=== PATIENT | female | born 1955 | race Caucasian/White ===

== ENCOUNTER 2021-08-31 18:33 | Inpatient (IN) ==
--- NOTE | 2021-08-31 18:53 | Emergency Department Note ---
History of Present Illness General Chief complaint: Altered Mental Status Time Seen by Provider: 08/31/21 18:43 Source: patient and other (Patient's nurse) Mode of arrival: EMS Limitations: altered mental status History of Present Illness Provider complaint: Altered mental status Onset (ago): hour(s) Location: head Pain Consistency: + constant Quality: + other (Altered mental status) Associated symptoms: + cough; no headaches This is a 66-year-old female brought in by ambulance after her sister found her on the ground at home. She was lying in her own feces and urine. She was just found prior to arrival. The patient was unable to get up. She states that she fell but did not hit her head. She will not answer many more questions even of a yes and no answer. She was just discharged from the hospital several days ago. She lives by herself. No further history is available. I was able to speak to her later. After she was on oxygen for some time she became coherent. She was able to answer my questions appropriately. She states that she fell this afternoon and could not get up. She developed a headache after the fall which she describes as an ache on the top of her head. No worsening factors. No neck injury or neck pain or stiffness. She has not been vomiting or having diarrhea. She denies any urinary symptoms. She denies any chest pain or abdominal pain. She did feel short of breath. She has been coughing. Home Medications Medication Instructions Recorded Confirmed Type aspirin 81 mg capsule 81 mg PO DAILY #30 cap 03/03/21 08/31/21 Rx atorvastatin 40 mg tablet 40 mg PO DAILY #30 tab 03/03/21 08/31/21 Rx blood sugar diagnostic (OneTouch #100 ea 03/03/21 08/25/21 Rx Verio test strips) carvedilol 6.25 mg tablet 6.25 mg PO BID #180 tab 03/03/21 08/31/21 Rx cetirizine 10 mg tablet (Zyrtec) 10 mg PO DAILY PRN #30 tab 03/03/21 08/31/21 Rx lisinopril 2.5 mg tablet 2.5 mg PO DAILY #30 tab 03/03/21 08/31/21 Rx pantoprazole 40 mg tablet,delayed 40 mg PO DAILY #30 tab 03/03/21 08/31/21 Rx release pen needle, diabetic 31 gauge x #50 ea 03/03/21 08/25/21 Rx 08/28" (Easy Comfort Pen [place]) L.acidop,casei,lactis,rham-B.lact,ramon 2 cap PO DAILY 14 Days #28 cap 08/28/21 08/31/21 Rx 625 mg (10 billion cell) capsule (Advanced Probiotic) doxycycline hyclate 100 mg capsule 100 mg PO BID 5 Days #10 cap 08/28/21 08/31/21 Rx insulin aspart U-100 100 unit/mL 15 unit SUBCUT TID #15 ml 08/28/21 08/31/21 Rx (3 mL) subcutaneous pen (Novolog Flexpen U-100 Insulin aspart) magnesium chloride 64 mg 64 mg PO BID 5 Days #10 tab 08/28/21 08/31/21 Rx (magnesium chloride) tablet,delayed release (Mag 64) dulaglutide 1.5 mg/0.5 mL 1.5 mg SUBCUT WK 08/31/21 08/31/21 History subcutaneous pen injector (Trulicity) insulin glargine 100 unit/mL 25 unit SUBCUT HS 08/31/21 08/31/21 History subcutaneous solution (Lantus U-100 Insulin) ondansetron 4 mg disintegrating 4 mg PO Q8 PRN 08/31/21 08/31/21 History tablet Allergies Allergy/AdvReac Type Severity Reaction Status Date / Time egg Allergy Mild Unknown Verified 08/31/21 19:40 Penicillins Allergy Mild Unknown Verified 08/31/21 19:40 codeine Allergy Unknown Verified 08/31/21 19:40 Sulfa (Sulfonamide Allergy Unknown Verified 08/31/21 19:40 Antibiotics) Past Med/Surg History Medical History Bipolar disorder, unspecified CAD (coronary artery disease) COPD (chronic obstructive pulmonary disease) Diabetic ketoacidosis Dyslipidemia GERD without esophagitis History of heart attack Hypertension Type 2 diabetes mellitus Surgical History History of surgical removal of ganglion cyst Hx of cholecystectomy Hx of tonsillectomy Family History Other Breast cancer Diabetes Myocardial infarction Denies family history of Ovarian cancer Prostate cancer Colorectal cancer Social History Smoking Status: Former smoker Age Quit Using Tobacco: 61; Second Hand Exposure: No; Hx Alcohol Use: No Hx Substance Use: No Preferred Language: Vietnamese Communication Ability: Effective Visual Impairment: No Limitations Hearing Ability: Normal 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 and A total of 10 systems reviewed and were otherwise negative (Reviewed at 2030 after the patient was more coherent) Unobtainable due to cognitive status Physical Exam Vital Signs Vital Signs - 24 hr 08/31/21 18:54 08/31/21 19:00 08/31/21 21:12 Temperature 37.3 C Temperature Source Oral Pulse Rate 106 H Pulse Rate [Right Finger] 108 H 102 H Pulse Rhythm Regular Pulse Strength Normal Pulse Strength [Right Finger] Normal Respiratory Rate 21 22 Respiratory Effort / Characteristics Non-Labored Spontaneous Spontaneous Respiratory Depth Shallow Respiratory Pattern Regular Blood Pressure 184/92 H Blood Pressure [Right Arm] 172/95 H Blood Pressure Mean 122 Blood Pressure Mean [Right Arm] 120 Blood Pressure Position Lying Blood Pressure Position [Right Arm] Lying Pulse Oximetry 97 80 L 90 Oxygen Delivery Method Nasal Cannula Room Air Nasal Cannula Oxygen Flow Rate 5 7 Sepsis Recent Fever Within 48 Hours No Sepsis New/Unexplained Change in Mental Status No Sepsis Action Taken by Nursing Physician Notified 08/31/21 21:18 Temperature Temperature Source Pulse Rate 108 H Pulse Rate [Right Finger] Pulse Rhythm Pulse Strength Pulse Strength [Right Finger] Respiratory Rate Respiratory Effort / Characteristics Respiratory Depth Respiratory Pattern Blood Pressure 145/102 H Blood Pressure [Right Arm] Blood Pressure Mean Blood Pressure Mean [Right Arm] Blood Pressure Position Blood Pressure Position [Right Arm] Pulse Oximetry Oxygen Delivery Method Oxygen Flow Rate Sepsis Recent Fever Within 48 Hours Sepsis New/Unexplained Change in Mental Status Sepsis Action Taken by Nursing Constitutional: Vital signs reviewed. Coughing throughout the examination. Eyes: Pupils are equal round reactive to light. Conjunctiva are noninjected. ENT: Pharynx is clear without erythema or exudate. Mucous membranes are moist. No midline tenderness to cervical spine. Respiratory: Rhonchi and wheezing bilaterally. Breath sounds are equal bilaterally. Cardiovascular: Tachycardic. Regular rhythm. GI: Soft, nondistended and nontender. Bowel sounds are present. Musculoskeletal: No peripheral edema. No lower extremity tenderness. Integumentary: No cyanosis. or jaundice. Neurological: The patient is awake and alert. Does not follow commands and ignores most questions. Psychiatric: Unable to assess Course Administered Medications Levofloxacin/Dextrose (Levaquin/D5w) 750 mg in 150 mls @ 100 mls/hr IV NOW STA Stop: 08/31/21 21:53 Last Admin: 08/31/21 21:17 Dose: 100 mls/hr Documented by: [id number] Magnesium Sulfate/Dextrose (Magnesium Sulfate / D5w) 1 gm in 100 mls @ 50 mls/hr IV ONE ONE Stop: 08/31/21 22:51 Last Admin: 08/31/21 21:18 Dose: 50 mls/hr Documented by: [id number] Discontinued Medications Albuterol (Albut/Ipratrop 3mg/0.5mg Neb 3 Ml Vial) 12 ml NEB ONE ONE; Protocol Stop: 08/31/21 20:40 Last Admin: 08/31/21 21:11 Dose: 12 ml Documented by: [id number] Sodium Chloride (Nss) 500 mls @ 999 mls/hr IV .Q31M ELIDA Stop: 08/31/21 19:30 Last Admin: 08/31/21 20:39 Dose: 999 mls/hr Documented by: [id number] Ioversol (Optiray 320 125ml) 119 ml IV ONCE ONE Stop: 08/31/21 20:01 Last Admin: 08/31/21 20:00 Dose: 119 ml Documented by: [id number] Metoprolol Tartrate (Metoprolol Tartrate 1 Mg/Ml Vial) 2.5 mg IV NOW STA Stop: 08/31/21 20:51 Last Admin: 08/31/21 21:18 Dose: 2.5 mg Documented by: [id number] Critical Care Time Critical Care Time: Yes Total Critical Care Time: 45 I have personally spent approximately 45 minutes of critical care time in the direct management of this patient. This includes bedside care, interpretation of diagnostic studies, and testing, discussion with consultants, patient, and family members, and other required patient management activities. These minutes are in excess of all separately billable procedures. Medical Decision Making Differential Diagnosis Intracranial hemorrhage, CVA, encephalopathy, DKA, UTI, pneumonia, metabolic derangement Medical Records Attestation: I reviewed the patient's medical records. I did perform a limited focused review of portions of the patient's old chart on the electronic medical record. The patient was just discharged from the hospital on the for DKA, fall and generalized weakness. The patient has a history of confusion and it was unclear if she has been taking her insulin. She also had sinusitis and was placed on antibiotics. Home Medications Current Medication List: was personally reviewed by me Laboratory Data Attestation: I reviewed the patient's lab results. Result diagrams: 08/31/21 19:12 08/31/21 19:12 Lab Results 08/31/21 08/31/21 08/31/21 Range/Units 18:58 19:05 19:06 WBC (4.8-10.8) K/uL RBC (4.2-5.4) M/uL Hgb (12.0-16.0) g/dL POC Hgb (12.0-16.0) g/dl Hct (37-47) % POC Hct (37-47) % MCV (80-100) fL MCH (25-34) pg MCHC (32-36) g/dL RDW Std Deviation (36.4-46.3) fL RDW Coeff of Sally (11.5-14.5) % Plt Count (130-400) K/uL MPV (7.4-10.4) fL Immature Gran % (Auto) % Neut % (Auto) % Lymph % (Auto) % [place] % (Auto) % Eos % (Auto) % Baso % (Auto) % Neut # (Auto) (1.4-6.5) K/uL Lymph # (Auto) (1.2-3.4) K/uL [place] # (Auto) (0.11-0.59) K/uL Eos # (Auto) (0-0.5) K/uL Baso # (Auto) (0-0.2) K/uL Immature Gran # (Auto) (0.00-0.02) K/uL ABG pH (7.35-7.45) ABG pCO2 (35-46) mmHg ABG pO2 (80-95) mmHg ABG HCO3 (19-24) mmol/L ABG O2 Saturation (90-95) % ABG Base Excess (-9-1.8) mEq/L Gamaliel Test (Pos) Barometric Pressure mm/Hg Oxygen Given POC Sodium (135-144) mmol/L Sodium (136-145) mmol/L POC Potassium (3.3-5.0) mmol/L Potassium (3.5-5.1) mmol/L POC Chloride (101-112) mmol/L Chloride (98-107) mmol/L Carbon Dioxide (21-32) mmol/L POC Total CO2 (24-31) mmol/L Anion Gap (3-11) POC Anion Gap (16-25) mmol/L POC BUN (7-18) mg/dl BUN (6-23) mg/dl Creatinine (0.6-1.2) mg/dl POC Creatinine (0.6-1.3) mg/dl Est Cr Clr Drug Dosing ml/min Est GFR ( Amer) ml/min Est GFR (Non-Af Amer) ml/min BUN/Creatinine Ratio (10-20) Glucose (70-99(Fasting)) mg/dl POC Glucose 351 H* 330 H* (70-99) mg/dl POC Glucose (other) (70-99) mg/dl Lactate (0.4-2.0) mmol/L Calcium (8.5-10.1) mg/dl POC Ioniz Calcium Robbie (1.12-1.32) mmol/l Total Bilirubin (0.2-1.0) mg/dl AST (13-39) U/L ALT (7-52) U/L Alkaline Phosphatase (34-104) U/L Total Creatine Kinase (26-192) U/L Troponin I High Sens (0-14) pg/ml Total Protein (6.0-8.3) gm/dl Albumin (3.4-5.0) gm/dl Globulin (2.5-4.0) gm/dl Albumin/Globulin Ratio (0.9-2) TSH (0.300-4.500) uIu/ml SARS-CoV-2, RNA, NAAT NEGATIVE (NEGATIVE) 08/31/21 08/31/21 08/31/21 Range/Units 19:12 19:12 19:12 WBC 28.64 H (4.8-10.8) K/uL RBC 4.30 (4.2-5.4) M/uL Hgb 12.9 (12.0-16.0) g/dL POC Hgb (12.0-16.0) g/dl Hct 37.7 (37-47) % POC Hct (37-47) % MCV 87.7 (80-100) fL MCH 30.0 (25-34) pg MCHC 34.2 (32-36) g/dL RDW Std Deviation 42.5 (36.4-46.3) fL RDW Coeff of Sally 13.2 (11.5-14.5) % Plt Count 469 H (130-400) K/uL MPV 9.3 (7.4-10.4) fL Immature Gran % (Auto) 0.7 % Neut % (Auto) 82.4 % Lymph % (Auto) 8.3 % [place] % (Auto) 7.9 % Eos % (Auto) 0.5 % Baso % (Auto) 0.2 % Neut # (Auto) 23.64 H (1.4-6.5) K/uL Lymph # (Auto) 2.37 (1.2-3.4) K/uL [place] # (Auto) 2.26 H (0.11-0.59) K/uL Eos # (Auto) 0.13 (0-0.5) K/uL Baso # (Auto) 0.05 (0-0.2) K/uL Immature Gran # (Auto) 0.19 H (0.00-0.02) K/uL ABG pH (7.35-7.45) ABG pCO2 (35-46) mmHg ABG pO2 (80-95) mmHg ABG HCO3 (19-24) mmol/L ABG O2 Saturation (90-95) % ABG Base Excess (-9-1.8) mEq/L Gamaliel Test (Pos) Barometric Pressure mm/Hg Oxygen Given POC Sodium (135-144) mmol/L Sodium 131 L (136-145) mmol/L POC Potassium (3.3-5.0) mmol/L Potassium 3.8 (3.5-5.1) mmol/L POC Chloride (101-112) mmol/L Chloride 92 L (98-107) mmol/L Carbon Dioxide 27 (21-32) mmol/L POC Total CO2 (24-31) mmol/L Anion Gap 12 H (3-11) POC Anion Gap (16-25) mmol/L POC BUN (7-18) mg/dl BUN 16 (6-23) mg/dl Creatinine 0.70 (0.6-1.2) mg/dl POC Creatinine (0.6-1.3) mg/dl Est Cr Clr Drug Dosing 74.1 ml/min Est GFR ( Amer) 103.9 ml/min Est GFR (Non-Af Amer) 89.7 ml/min BUN/Creatinine Ratio 22.9 H (10-20) Glucose 354 H* (70-99(Fasting)) mg/dl POC Glucose (70-99) mg/dl POC Glucose (other) (70-99) mg/dl Lactate (0.4-2.0) mmol/L Calcium 8.8 (8.5-10.1) mg/dl POC Ioniz Calcium Robbie (1.12-1.32) mmol/l Total Bilirubin 0.4 (0.2-1.0) mg/dl AST 25 (13-39) U/L ALT 17 (7-52) U/L Alkaline Phosphatase 143 H (34-104) U/L Total Creatine Kinase 329 H (26-192) U/L Troponin I High Sens 31.1 H (0-14) pg/ml Total Protein 7.0 (6.0-8.3) gm/dl Albumin 2.8 L (3.4-5.0) gm/dl Globulin 4.2 H (2.5-4.0) gm/dl Albumin/Globulin Ratio 0.7 L (0.9-2) TSH (0.300-4.500) uIu/ml SARS-CoV-2, RNA, NAAT (NEGATIVE) 08/31/21 08/31/21 08/31/21 Range/Units 19:12 19:12 19:18 WBC (4.8-10.8) K/uL RBC (4.2-5.4) M/uL Hgb (12.0-16.0) g/dL POC Hgb 14.3 (12.0-16.0) g/dl Hct (37-47) % POC Hct 42 (37-47) % MCV (80-100) fL MCH (25-34) pg MCHC (32-36) g/dL RDW Std Deviation (36.4-46.3) fL RDW Coeff of Sally (11.5-14.5) % Plt Count (130-400) K/uL MPV (7.4-10.4) fL Immature Gran % (Auto) % Neut % (Auto) % Lymph % (Auto) % [place] % (Auto) % Eos % (Auto) % Baso % (Auto) % Neut # (Auto) (1.4-6.5) K/uL Lymph # (Auto) (1.2-3.4) K/uL [place] # (Auto) (0.11-0.59) K/uL Eos # (Auto) (0-0.5) K/uL Baso # (Auto) (0-0.2) K/uL Immature Gran # (Auto) (0.00-0.02) K/uL ABG pH (7.35-7.45) ABG pCO2 (35-46) mmHg ABG pO2 (80-95) mmHg ABG HCO3 (19-24) mmol/L ABG O2 Saturation (90-95) % ABG Base Excess (-9-1.8) mEq/L Gamaliel Test (Pos) Barometric Pressure mm/Hg Oxygen Given POC Sodium 132 L (135-144) mmol/L Sodium (136-145) mmol/L POC Potassium 3.8 (3.3-5.0) mmol/L Potassium (3.5-5.1) mmol/L POC Chloride 91 L (101-112) mmol/L Chloride (98-107) mmol/L Carbon Dioxide (21-32) mmol/L POC Total CO2 28 (24-31) mmol/L Anion Gap (3-11) POC Anion Gap 19.0 (16-25) mmol/L POC BUN 15 (7-18) mg/dl BUN (6-23) mg/dl Creatinine (0.6-1.2) mg/dl POC Creatinine 0.6 (0.6-1.3) mg/dl Est Cr Clr Drug Dosing ml/min Est GFR ( Amer) ml/min Est GFR (Non-Af Amer) ml/min BUN/Creatinine Ratio (10-20) Glucose (70-99(Fasting)) mg/dl POC Glucose (70-99) mg/dl POC Glucose (other) 385 H* (70-99) mg/dl Lactate 1.1 (0.4-2.0) mmol/L Calcium (8.5-10.1) mg/dl POC Ioniz Calcium Robbie 1.05 L (1.12-1.32) mmol/l Total Bilirubin (0.2-1.0) mg/dl AST (13-39) U/L ALT (7-52) U/L Alkaline Phosphatase (34-104) U/L Total Creatine Kinase (26-192) U/L Troponin I High Sens (0-14) pg/ml Total Protein (6.0-8.3) gm/dl Albumin (3.4-5.0) gm/dl Globulin (2.5-4.0) gm/dl Albumin/Globulin Ratio (0.9-2) TSH 0.708 (0.300-4.500) uIu/ml SARS-CoV-2, RNA, NAAT (NEGATIVE) 08/31/21 Range/Units 19:22 WBC (4.8-10.8) K/uL RBC (4.2-5.4) M/uL Hgb (12.0-16.0) g/dL POC Hgb (12.0-16.0) g/dl Hct (37-47) % POC Hct (37-47) % MCV (80-100) fL MCH (25-34) pg MCHC (32-36) g/dL RDW Std Deviation (36.4-46.3) fL RDW Coeff of Sally (11.5-14.5) % Plt Count (130-400) K/uL MPV (7.4-10.4) fL Immature Gran % (Auto) % Neut % (Auto) % Lymph % (Auto) % [place] % (Auto) % Eos % (Auto) % Baso % (Auto) % Neut # (Auto) (1.4-6.5) K/uL Lymph # (Auto) (1.2-3.4) K/uL [place] # (Auto) (0.11-0.59) K/uL Eos # (Auto) (0-0.5) K/uL Baso # (Auto) (0-0.2) K/uL Immature Gran # (Auto) (0.00-0.02) K/uL ABG pH 7.45 (7.35-7.45) ABG pCO2 41 (35-46) mmHg ABG pO2 107 H (80-95) mmHg ABG HCO3 28 H (19-24) mmol/L ABG O2 Saturation 98.2 H (90-95) % ABG Base Excess 3.7 H (-9-1.8) mEq/L Gamaliel Test Pos (Pos) Barometric Pressure 725.5 mm/Hg Oxygen Given 5 L POC Sodium (135-144) mmol/L Sodium (136-145) mmol/L POC Potassium (3.3-5.0) mmol/L Potassium (3.5-5.1) mmol/L POC Chloride (101-112) mmol/L Chloride (98-107) mmol/L Carbon Dioxide (21-32) mmol/L POC Total CO2 (24-31) mmol/L Anion Gap (3-11) POC Anion Gap (16-25) mmol/L POC BUN (7-18) mg/dl BUN (6-23) mg/dl Creatinine (0.6-1.2) mg/dl POC Creatinine (0.6-1.3) mg/dl Est Cr Clr Drug Dosing ml/min Est GFR ( Amer) ml/min Est GFR (Non-Af Amer) ml/min BUN/Creatinine Ratio (10-20) Glucose (70-99(Fasting)) mg/dl POC Glucose (70-99) mg/dl POC Glucose (other) (70-99) mg/dl Lactate (0.4-2.0) mmol/L Calcium (8.5-10.1) mg/dl POC Ioniz Calcium Robbie (1.12-1.32) mmol/l Total Bilirubin (0.2-1.0) mg/dl AST (13-39) U/L ALT (7-52) U/L Alkaline Phosphatase (34-104) U/L Total Creatine Kinase (26-192) U/L Troponin I High Sens (0-14) pg/ml Total Protein (6.0-8.3) gm/dl Albumin (3.4-5.0) gm/dl Globulin (2.5-4.0) gm/dl Albumin/Globulin Ratio (0.9-2) TSH (0.300-4.500) uIu/ml SARS-CoV-2, RNA, NAAT (NEGATIVE) Imaging Data Radiologist's Impression: Cervical Spine CT 08/31/21 18:48 CT OF THE CERVICAL SPINE WITHOUT CONTRAST CLINICAL HISTORY: Fall. COMPARISON STUDY: Cervical spine CT August 25, 2021. TECHNIQUE: Helical axial images of the cervical spine were obtained without IV contrast. Sagittal and coronal reconstructions were viewed. Automated exposure control was utilized for the study. A dose lowering technique was utilized adhering to the principles of ALARA. FINDINGS: This study is mildly compromised by artifact. There is straightening of the normal cervical lordosis. Vertebral body heights are maintained. No acute cervical spine fracture or subluxation is present. There is no prevertebral edema. Facet joints are intact. Extensive polypoid mucosal thickening of the sinuses is better depicted on the head CT. IMPRESSION: No acute cervical spine fracture or subluxation. ACT 112: Negative or not required by law. Electronically signed by: Jere Morales M.D. 08/31/2021 8:11 PM Chest X-Ray 08/31/21 18:48 XR chest 1V portable CLINICAL HISTORY: weakness COMPARISON STUDY: Chest radiograph August 25, 2021. FINDINGS: Lung volumes are normal. Lungs are clear. There is no pneumothorax or pleural effusion. Cardiac size is normal. Mediastinal contours are normal. There is no evidence for pulmonary edema. IMPRESSION: No acute cardiopulmonary findings. ACT 112: Negative or not required by law. Electronically signed by: Jere Morales M.D. 08/31/2021 7:[address] 08/31/21 18:48 CT OF THE HEAD WITHOUT CONTRAST CLINICAL HISTORY: Fall. COMPARISON STUDY: Head CT August 25, 2021. TECHNIQUE: Helical axial images of the head were obtained without IV contrast. Automated exposure control was utilized for the study. A dose lowering technique was utilized adhering to the principles of ALARA. FINDINGS: No acute intracranial hemorrhage, midline shift or mass effect is present. Basal cisterns are patent. There are no extra axial collections. Encephalomalacia adjacent to the frontal horns of the lateral ventricles with associated ventricular dilatation is unchanged. This is chronic. No findings to suggest acute dural sinus thrombosis or acute territorial infarct. The appearance of the brain is unchanged. No acute calvarial fracture is identified. Extensive mucosal thickening of the sinuses has progressed since prior CT. IMPRESSION: 1. No acute intracranial findings. No change in appearance of the brain. 2. No acute calvarial fracture. 3. Extensive sinus mucosal thickening which has progressed since prior head CT. ACT 112: Negative or not required by law. Electronically signed by: Jere Morales M.D. 08/31/2021 8:08 PM Chest CTA 08/31/21 19:32 CT ANGIOGRAPHY OF THE CHEST, PULMONARY EMBOLUS PROTOCOL CLINICAL HISTORY: Hypoxia. COMPARISON STUDY: Chest CT August 25, 2021. Chest CT performed earlier today. TECHNIQUE: Following IV administration of 119 mL of Optiray, helical axial images of the chest were obtained utilizing the pulmonary embolus protocol. Maximal intensity projections and sagittal and coronal reformats were viewed on an independent 3D workstation. IV contrast was administered without complication. Automated exposure control was utilized for the study. A dose lowering technique was utilized adhering to the principles of ALARA. CT DOSE: 2120.71 mGy.cm FINDINGS: No pulmonary emboli are identified. There is no thoracic aortic dissection. Size the heart is normal. There is moderate coronary artery calcification. Extensive mitral annular calcification is noted. Several mildly enlarged subcarinal lymph nodes measure up to 1.1 cm in short axis diameter. No pneumothorax or pleural effusion is noted. There is no consolidation to suggest pneumonia. Mild subpleural opacities favor atelectasis. Note is made of moderate circumferential wall thickening of the trachea. This does not spare the posterior tracheal wall. In addition, there is pronounced diffuse bronchial wall thickening, greater within the right lung. This results in significant airway narrowing. Secretions within the airways are present. No acute fracture is identified within visualized portions of the bony thorax. Visualized portions of the upper abdomen are unremarkable. IMPRESSION: 1. No pulmonary emboli identified. 2. Moderate circumferential tracheal wall thickening with mild adjacent infiltra tion. Extensive bronchial wall thickening, greater within the right lung which results in significant airway narrowing. Long segment tracheobronchial wall thickening appearance is nonspecific however differential considerations include Erica's, sarcoidosis, amyloidosis or an infectious process. Pulmonary consultation is recommended. 3. Several mildly enlarged subcarinal lymph nodes which are probably reactive. An underlying neoplastic process is considered unlikely however a follow up chest CT in 3 months is recommended. 4. No acute traumatic findings within the chest. ACT 112: Negative or not required by law. Electronically signed by: Jere Morales M.D. 08/31/2021 8:26 PM ECG Data Attestation: I personally reviewed and interpreted this ECG as follows: Indication: + altered mental status Rate (beats per minute): 108 Rhythm: + sinus tachycardia ECG Glidden: + Normal ECG ST segments: no ST elevation ECG Findings: no PVCs Comparison ECG Date: from (August 25, 2021) Change: no significant change MDM Narrative I did evaluate the patient as noted above. The patient was recently discharged from the hospital for DKA. She lives by herself and her sister found her on the ground today. She is a poor historian and confused at this time so history is very limited. She does deny hitting her head or having any headache. She is hypoxic here and is placed on supplemental oxygen via nasal cannula. IV access was established. I did place an order for continuous cardiac monitoring. The monitor showed sinus tachycardia at a rate of 106 bpm. I did order and personally review the patient's 12-lead EKG as described above. She has no acute ischemic changes. I did order and personally reviewed the images of the patient's chest x-ray as described above. There is no evidence of pneumonia. I did order a urine analysis. I did order and review the patient's blood work as noted in the electronic medical record. Her white count is 28.6. She is not anemic. Platelet count is 469. ABG shows a pH of 7.45. PaCO2 is 41 and PaO2 is 107. Chemistries reveal a sodium of 131. She has an anion gap of 12. CO2 is 27. Glucose is 354. Potassium is 3.8. Her CPK is elevated at 329. Troponin is elevated at 31. Alk phos is 143. Lactate is not elevated. I did order a CT of the head and cervical spine and CT angiogram of the chest. I did review the images myself as well as the radiology report as described above. CT of the head shows no acute intracranial findings. She has extensive spinal mucosal thickening which has progressed since her prior CT. CT cervical spine shows no acute fracture. CT of the chest shows no evidence of pulmonary emboli. There is moderate circumferential tracheal wall thickening with mild adjacent infiltration. Extensive bronchial wall thickening greater within the right lung which results in significant airway narrowing. I did treat her with a hour-long continuous DuoNeb. I did treat the patient with IV Levaquin. This should cover both her sinus infection as well as any lung infection. She was previously given ceftriaxone and doxycycline when she was previously admitted. On reassessment the patient is much more awake and verbal. She is able to answer questions appropriately. She states that she does have a headache on the top of her head which started after she fell. She did not have the headache prior to that. She denies any neck pain or stiffness. She has no meningeal signs on exam. She denies any other complaints including vomiting, chest pain, abdominal pain or other injury.She denies any urinary symptoms. She states that she fell this afternoon. I did recommend hospitalization for further care and evaluation. I did discuss case with the hospitalist and shelter case manager. Impression & Plan Acute respiratory failure with hypoxia, Acute hyperglycemia, Hyponatremia, Asthma exacerbation in COPD, Acute bacterial sinusitis, Acute alteration in mental status, Elevated troponin Discharge Plan Visit Data Chief Complaint: Altered Mental Status ED Provider: Miky Norman Discharge Problem: Acute respiratory failure with hypoxia, Acute hyperglycemia, Hyponatremia, Asthma exacerbation in COPD, Acute bacterial sinusitis, Acute alteration in mental status, Elevated troponin Patient Disposition: Being Evaluated by Hospitalist Forms Stand Alone Forms: My [facility] Prescriptions Prescriptions: No Action atorvastatin 40 mg tablet 40 mg PO DAILY Qty: 30 RF: 2 cetirizine [Zyrtec] 10 mg tablet 10 mg PO DAILY PRN (Reason: allergy symptoms) Qty: 30 RF: 0 (DME) pen needle, diabetic [Easy Comfort Pen [place]] 31 gauge x 5/16" needle See Rx Instructions .ROUTE Qty: 50 RF: 0 (DME) OneTouch Verio test strips Strip See Rx Instructions .ROUTE Qty: 100 RF: 0 aspirin 81 mg capsule 81 mg PO DAILY Qty: 30 RF: 2 carvedilol 6.25 mg tablet 6.25 mg PO BID Qty: 180 RF: 3 lisinopril 2.5 mg tablet 2.5 mg PO DAILY Qty: 30 RF: 2 pantoprazole 40 mg tablet,delayed release (DR/EC) 40 mg PO DAILY Qty: 30 RF: 2 doxycycline hyclate 100 mg Capsule 100 mg PO BID 5 Days Qty: 10 RF: 0 Mag 64 64 mg Tablet,Delayed Release (Dr/Ec) 64 mg PO BID 5 Days Qty: 10 RF: 0 insulin aspart U-100 [Novolog Flexpen U-100 Insulin] 100 unit/mL (3 mL) insulin pen 15 unit subcut TID Qty: 15 RF: 3 Advanced Probiotic 625 mg (10 billion cell) Capsule 2 cap PO DAILY 14 Days Qty: 28 RF: 0 Trulicity 1.5 mg/0.5 mL pen injector 1.5 mg SUBCUT WK RF: 0 ondansetron 4 mg tablet,disintegrating 4 mg PO Q8 PRN (Reason: Nausea And Vomiting) RF: 0 Lantus U-100 Insulin 100 unit/mL solution 25 unit subcut HS RF: 0 Referrals Referrals: PCP,NO [Primary Care Provider] -
[2021-08-31] MEDS ORDERED: SODIUM CHLORIDE 0.9% 500 ML IV SCH (19:00)
[2021-08-31 19:31] LABS: iSTAT Creatinine 0.6 mg/dl (0.6-1.3); iSTAT Hemoglobin 14.3 g/dl (12.0-16.0); iSTAT Ionized Calcium 1.05 mmol/l (1.12-1.32); iSTAT Potassium 3.8 mmol/L (3.3-5.0)
[2021-08-31 19:34] LABS: Hematocrit (blood only) 37.7 % (37-47); Hemoglobin 12.9 g/dL (12.0-16.0); Mean Corpuscular Hgb Conc 34.2 g/dL (32-36); Mean Corpuscular Volume 87.7 fL (80-100); Mean Platelet Volume 9.3 fL (7.4-10.4); Platelet Count 469 K/uL (130-400); RDW Coefficient of Variation 13.2 % (11.5-14.5); RDW Standard Deviation 42.5 fL (36.4-46.3); White Blood Count 28.64 K/uL (4.8-10.8)
--- NOTE | 2021-08-31 19:37 | XRay Report ---
XR chest 1V portable CLINICAL HISTORY: weakness COMPARISON STUDY: Chest radiograph August 25, 2021. FINDINGS: Lung volumes are normal. Lungs are clear. There is no pneumothorax or pleural effusion. Car diac size is normal. Mediastinal contours are normal. There is no evidence for pulmonary edema. IMPRESSION: No acute cardiopulmonary findings. ACT 112: Negative or not required by law. Electronically signed by: Jere Morales M.D. 08/31/2021 7:36 PM
[2021-08-31 19:46] LABS: Base Excess ABG 3.7 mEq/L (-9-1.8); HCO3 ABG 28 mmol/L (19-24); Oxygen Saturation ABG 98.2 % (90-95); PCO2 ABG 41 mmHg (35-46); PO2 ABG 107 mmHg (80-95); pH ABG 7.45 (7.35-7.45)
[2021-08-31 19:47] LABS: Allen Test Pos (Pos)
[2021-08-31] MEDS ORDERED: OPTIRAY 320 125ml IV ONE (20:00)
[2021-08-31 20:06] LABS: Basophils # (auto) 0.05 K/uL (0-0.2); Basophils % (auto) 0.2 %; Eosinophils # (auto) 0.13 K/uL (0-0.5); Eosinophils % (auto) 0.5 %; Immature Granulocytes # (auto) 0.19 K/uL (0.00-0.02); Immature Granulocytes % (auto) 0.7 %; Lymphocytes # (auto) 2.37 K/uL (1.2-3.4); Lymphocytes % (auto) 8.3 %; Monocytes # (auto) 2.26 K/uL (0.11-0.59); Monocytes % (auto) 7.9 %; Neutrophils # (auto) 23.64 K/uL (1.4-6.5); Neutrophils % (auto) 82.4 %
[2021-08-31 20:07] LABS: Albumin Globulin Ratio 0.7 (0.9-2); Albumin Level 2.8 gm/dl (3.4-5.0); BUN Creatinine Ratio 22.9 (10-20); Bilirubin,Total 0.4 mg/dl (0.2-1.0); Calcium 8.8 mg/dl (8.5-10.1); Creatinine Clr Calc Pharmacy 74.1 ml/min; Est GFR (African American) 103.9 ml/min; Est GFR (Non-African American) 89.7 ml/min; Globulin 4.2 gm/dl (2.5-4.0); Potassium 3.8 mmol/L (3.5-5.1)
--- NOTE | 2021-08-31 20:10 | CT Scan Report ---
CT OF THE HEAD WITHOUT CONTRAST CLINICAL HISTORY: Fall. COMPARISON STUDY: Head CT August 25, 2021. TECHNIQUE: Helical axial images of the head were obtained without IV contrast. Automated exposure con trol was utilized for the study. A dose lowering technique was utilized adhering to the principles o f ALARA. FINDINGS: No acute intracranial hemorrhage, midline shift or mass effect is present. Basal cisterns a re patent. There are no extra axial collections. Encephalomalacia adjacent to the frontal horns of th e lateral ventricles with associated ventricular dilatation is unchanged. This is chronic. No finding s to suggest acute dural sinus thrombosis or acute territorial infarct. The appearance of the brain i s unchanged. No acute calvarial fracture is identified. Extensive mucosal thickening of the sinuses h as progressed since prior CT. IMPRESSION: 1. No acute intracranial findings. No change in appearance of the brain. 2. No acute calvarial fracture. 3. Extensive sinus mucosal thickening which has progressed since prior head CT. ACT 112: Negative or not required by law. Electronically signed by: Jere Morales M.D. 08/31/2021 8:08 PM
--- NOTE | 2021-08-31 20:13 | CT Scan Report ---
CT OF THE CERVICAL SPINE WITHOUT CONTRAST CLINICAL HISTORY: Fall. COMPARISON STUDY: Cervical spine CT August 25, 2021. TECHNIQUE: Helical axial images of the cervical spine were obtained without IV contrast. Sagittal a nd coronal reconstructions were viewed. Automated exposure control was utilized for the study. A do se lowering technique was utilized adhering to the principles of ALARA. FINDINGS: This study is mildly compromised by artifact. There is straightening of the normal cervical lordosis. Vertebral body heights are maintained. No acute cervical spine fracture or subluxation is present. There is no prevertebral edema. Facet joints are intact. Extensive polypoid mucosal thicken ing of the sinuses is better depicted on the head CT. IMPRESSION: No acute cervical spine fracture or subluxation. ACT 112: Negative or not required by law. Electronically signed by: Jere Morales M.D. 08/31/2021 8:11 PM
[2021-08-31] MEDS ORDERED: levoFLOXacin/D5W 750 MG/150 ML BAG IV STA (20:24)
--- NOTE | 2021-08-31 20:28 | CT Scan Report ---
CT ANGIOGRAPHY OF THE CHEST, PULMONARY EMBOLUS PROTOCOL CLINICAL HISTORY: Hypoxia. COMPARISON STUDY: Chest CT August 25, 2021. Chest CT performed earlier today. TECHNIQUE: Following IV administration of 119 mL of Optiray, helical axial images of the chest were o btained utilizing the pulmonary embolus protocol. Maximal intensity projections and sagittal and cor onal reformats were viewed on an independent 3D workstation. IV contrast was administered without co mplication. Automated exposure control was utilized for the study. A dose lowering technique was ut ilized adhering to the principles of ALARA. CT DOSE: 2120.71 mGy.cm FINDINGS: No pulmonary emboli are identified. There is no thoracic aortic dissection. Size the heart is normal. There is moderate coronary artery calcification. Extensive mitral annular calcification i s noted. Several mildly enlarged subcarinal lymph nodes measure up to 1.1 cm in short axis diameter. No pneumothorax or pleural effusion is noted. There is no consolidation to suggest pneumonia. Mild marie bpleural opacities favor atelectasis. Note is made of moderate circumferential wall thickening of the trachea. This does not spare the posterior tracheal wall. In addition, there is pronounced diffuse b ronchial wall thickening, greater within the right lung. This results in significant airway narrowing . Secretions within the airways are present. No acute fracture is identified within visualized portio ns of the bony thorax. Visualized portions of the upper abdomen are unremarkable. IMPRESSION: 1. No pulmonary emboli identified. 2. Moderate circumferential tracheal wall thickening with mild adjacent infiltration. Extensive bronc hial wall thickening, greater within the right lung which results in significant airway narrowing. Lo ng segment tracheobronchial wall thickening appearance is nonspecific however differential considerat ions include Erica's, sarcoidosis, amyloidosis or an infectious process. Pulmonary consultation is recommended. 3. Several mildly enlarged subcarinal lymph nodes which are probably reactive. An underlying neoplast ic process is considered unlikely however a follow up chest CT in 3 months is recommended. 4. No acute traumatic findings within the chest. ACT 112: Negative or not required by law. Electronically signed by: Jere Morales M.D. 08/31/2021 8:26 PM
[2021-08-31] MEDS ORDERED: ALBUT/IPRATROP 3MG/0.5MG NEB 3 ML VIAL NEB ONE (20:39)
[2021-08-31] MEDS ORDERED: METOPROLOL TARTRATE 1 MG/ML VIAL IV STA (20:50)
[2021-08-31] MEDS ORDERED: MAGNESIUM SULFATE / D5W 1 GM/100 ML BAG IV ONE (20:52)
[2021-08-31 22:03] LABS: Appearance Urine Cloudy (Clear); Bacteria Urine Automated Negative (Negative); Bilirubin Urine Negative (Negative); Blood Urine 2+ (Negative); Color Urine Yellow; Glucose Urine UA 3+ (Negative); Ketones Urine 3+ (Negative); Leukocyte Esterase Urine Trace (Negative); Nitrite Urine Negative (Negative); Protein Urine 2+ (Negative); Specific Gravity Urine > 1.045 (1.000-1.030); Urobilinogen Urine Negative (Negative); WBC Urine Automated >30 /hpf (0-5); pH Urine 5.5 (4.5-7.5)
--- NOTE | 2021-08-31 23:29 | History & Physical Report ---
Date of Service August 31, 2021 Assessment & Plan (1) Encephalopathy: Plan: Multifactorial : Acute hypoxemic respiratory failure secondary to COPD exacerbation/tracheobronchitis Severe sepsis secondary to right parotitis, healthcare associated infection given recent confinement Elevated BP upon arrival at the ER Improved mentation after initial intervention at the ER. Troponin elevation secondary to illness, hx CAD hyperlipidemia on statin Rx DM 2 insulin requiring, suboptimal control as of recent hemoglobin A1c of 14.21 Aug 2021 mood disorder, at baseline Possible functional disability past tobacco abuse Medical telemetry Supplemental O2 Nebs RTC, low-dose steroid course given poorly controlled DM Pulmonary consult Re: Respiratory failure, abnormal CT chest, COPD exacerbation CS, Vancomycin and Meropenem for healthcare associated parotitis ENT consult Re: Right parotitis Follow troponin, TTE if with progression Basal insulin, ISS BG goal 1 10-1 40, carb count coverage PT OT eval DVT prophylaxis per Lovenox subcu Full code Total critical care time was 40 minutes. Text document was generated using [employer] voice recognition software. It may contain grammatical or spelling errors. Kindly contact undersigned for clarification of any documentation item in question. History of Present Illness Chief Complaint: Shortness of breath, altered mental status as per records Primary Care Provider: Dr. Reed History obtained from patient and records. Medical history significant for COPD, CAD status post stent, hypertension, hyperlipidemia DM 2 insulin requiring, mood disorder, past tobacco abuse. Last confinement August 25-2021 for DKA and acute bacterial sinusitis. Patient discharged on Doxycycline course. Patient noted painful right cheek swelling the last 2 days. Junky cough symptoms patient denies aspiration. Shortness of breath and weakness without chest pain as per patient. Patient denies fluid retention. Patient felt weak leading to fall at home this afternoon. Patient had trouble getting up. Transient headache symptoms. No syncope/LOC. No abdominal pain complaints. Patient found on the floor by her sister. Patient lying in her own feces and urine. Patient somewhat confused. Patient found to be hypoxemic by EMS. Levaquin given at the ER for sepsis. Improving mentation at the ER. Medical History as above Surgical History : BTL, cholecystectomy Family History : DM Personal/Social history : Past tobacco abuse, no EtOH intake Allergies Allergy/AdvReac Type Severity Reaction Status Date / Time egg Allergy Mild Unknown Verified 09/01/21 07:06 Penicillins Allergy Mild Unknown Verified 09/01/21 07:06 codeine Allergy Unknown Verified 09/01/21 07:06 Sulfa (Sulfonamide Allergy Unknown Verified 09/01/21 07:06 Antibiotics) Home Medications Medication Instructions Recorded Confirmed Type aspirin 81 mg capsule 81 mg PO DAILY #30 cap 03/03/21 08/31/21 Rx atorvastatin 40 mg tablet 40 mg PO DAILY #30 tab 03/03/21 08/31/21 Rx blood sugar diagnostic (OneTouch #100 ea 03/03/21 08/25/21 Rx Verio test strips) carvedilol 6.25 mg tablet 6.25 mg PO BID #180 tab 03/03/21 08/31/21 Rx cetirizine 10 mg tablet (Zyrtec) 10 mg PO DAILY PRN #30 tab 03/03/21 08/31/21 Rx lisinopril 2.5 mg tablet 2.5 mg PO DAILY #30 tab 03/03/21 08/31/21 Rx pantoprazole 40 mg tablet,delayed 40 mg PO DAILY #30 tab 03/03/21 08/31/21 Rx release pen needle, diabetic 31 gauge x #50 ea 03/03/21 08/25/21 Rx 5/16" (Easy Comfort Pen Ald[place]) L.acidop,casei,lactis,rham-B.lact,ramon 2 cap PO DAILY 14 Days #28 cap 08/28/21 08/31/21 Rx 625 mg (10 billion cell) capsule (Advanced Probiotic) doxycycline hyclate 100 mg capsule 100 mg PO BID 5 Days #10 cap 08/28/21 08/31/21 Rx insulin aspart U-100 100 unit/mL 15 unit SUBCUT TID #15 ml 08/28/21 08/31/21 Rx (3 mL) subcutaneous pen (Novolog Flexpen U-100 Insulin aspart) magnesium chloride 64 mg 64 mg PO BID 5 Days #10 tab 08/28/21 08/31/21 Rx (magnesium chloride) tablet,delayed release (Mag 64) dulaglutide 1.5 mg/0.5 mL 1.5 mg SUBCUT WK 08/31/21 08/31/21 History subcutaneous pen injector (Trulicity) insulin glargine 100 unit/mL 25 unit SUBCUT HS 08/31/21 08/31/21 History subcutaneous solution (Lantus U-100 Insulin) ondansetron 4 mg disintegrating 4 mg PO Q8 PRN 08/31/21 08/31/21 History tablet Past Med/Surg History Medical History (Updated 09/01/21 @ 08:20 by Ranjan Hussein MD) Bipolar disorder, unspecified CAD (coronary artery disease) COPD (chronic obstructive pulmonary disease) Diabetic ketoacidosis Dyslipidemia GERD without esophagitis History of heart attack Hypertension Type 2 diabetes mellitus Surgical History (Updated 09/01/21 @ 07:06 by Lianne Solorio) History of surgical removal of ganglion cyst Hx of cholecystectomy Hx of tonsillectomy Family History (System 09/01/21 @ 07:06 by Lianne Solorio) Other Breast cancer Diabetes Myocardial infarction Denies family history of Ovarian cancer Prostate cancer Colorectal cancer Social History (System 09/01/21 @ 07:06 by Lianne Solorio) Smoking Status: Former smoker Age Quit Using Tobacco: 61; Second Hand Exposure: No; Do You Dip or Chew Tobacco: No; Tobacco Cessation Education Requested by Patient: No Hx Alcohol Use: No Hx Substance Use: Yes Preferred Language: Citizen Of [place] Communication Ability: Effective Visual Impairment: No Limitations Hearing Ability: Normal [employer]ante[employer] Required: No Beliefs That Will Affect Care: None marital status: / Current Living Situation: Alone current occupational status: retired How many Children do You have: 1 Other Information That Helps Us Care for You: No Feels Safe at Home: Yes Safety Concerns: Feels Safe At This Time Assistive Devices: Glasses Review of Systems Review of Systems: As per HPI, all other systems reviewed and negative Physical Exam Physical Exam: GENERAL: Slightly uncomfortable, morbidly obese, no respiratory distress SKIN: Normal color, warm HEENT: Bespectacled, [place] palpebral conjunctivae, no ptosis, dry buccal mucosa, tender infra-auricular swelling right, O2 mask in place NECK : Supple, short neck, minimal right cervical tenderness CHEST : Decreased breath sounds, occasional expiratory wheezes , no tenderness HEART : Tachycardic, no obvious murmurs ABDOMEN: Some distention, nontender EXTREMITIES : Minimal LE swelling, no LE tenderness, no other conspicuous deformities noted NEUROLOGIC : Coherent, no facial asymmetry, slightly hard of hearing, and stance not assessed Results & Data Results & Data ([facility]) Vital Signs (Past 12 Hours) Vital Signs Temp Pulse Pulse Resp BP BP Pulse Ox 08/31/21 23:20 94 08/31/21 23:15 160/87 H 94 08/31/21 23:10 92 08/31/21 23:00 140/83 89 L 08/31/21 22:50 95 08/31/21 22:45 148/73 H 96 08/31/21 22:40 97 08/31/21 22:30 129/74 93 08/31/21 22:20 96 08/31/21 22:15 129/85 99 08/31/21 22:10 98 08/31/21 22:00 129/65 96 08/31/21 21:50 97 08/31/21 21:45 132/92 98 08/31/21 21:40 99 08/31/21 21:30 140/74 98 08/31/21 21:20 98 08/31/21 21:18 108 H 145/102 H 08/31/21 21:12 102 H 22 145/102 H 93 08/31/21 21:10 86 L 08/31/21 21:00 86 L 08/31/21 20:50 88 L 08/31/21 20:40 92 08/31/21 20:30 90 08/31/21 20:20 90 08/31/21 20:10 94 08/31/21 20:03 97 08/31/21 19:31 107 H 25 H 162/92 H 94 08/31/21 19:30 105 H 22 93 08/31/21 19:20 107 H 27 H 96 08/31/21 19:10 106 H 31 H 97 08/31/21 19:05 109 H 28 H 96 08/31/21 19:00 80 L 08/31/21 18:54 37.3 C 106 H 108 H 21 184/92 H 172/95 H 97 Laboratory Results Laboratory Results WBC 28.64 K/uL (4.8-10.8) H 08/31/21 19:12 RBC 4.30 M/uL (4.2-5.4) 08/31/21 19:12 Hgb 12.9 g/dL (12.0-16.0) 08/31/21 19:12 POC Hgb 14.3 g/dl (12.0-16.0) 08/31/21 19:18 Hct 37.7 % (37-47) 08/31/21 19:12 POC Hct 42 % (37-47) 08/31/21 19:18 MCV 87.7 fL (80-100) 08/31/21 19:12 MCH 30.0 pg (25-34) 08/31/21 19:12 MCHC 34.2 g/dL (32-36) 08/31/21 19:12 RDW Std Deviation 42.5 fL (36.4-46.3) 08/31/21 19:12 RDW Coeff of Sally 13.2 % (11.5-14.5) 08/31/21 19:12 Plt Count 469 K/uL (130-400) H 08/31/21 19:12 MPV 9.3 fL (7.4-10.4) 08/31/21 19:12 Immature Gran % (Auto) 0.7 % 08/31/21 19:12 Neut % (Auto) 82.4 % 08/31/21 19:12 Lymph % (Auto) 8.3 % 08/31/21 19:12 [place] % (Auto) 7.9 % 08/31/21 19:12 Eos % (Auto) 0.5 % 08/31/21 19:12 Baso % (Auto) 0.2 % 08/31/21 19:12 Neut # (Auto) 23.64 K/uL (1.4-6.5) H 08/31/21 19:12 Lymph # (Auto) 2.37 K/uL (1.2-3.4) 08/31/21 19:12 [place] # (Auto) 2.26 K/uL (0.11-0.59) H 08/31/21 19:12 Eos # (Auto) 0.13 K/uL (0-0.5) 08/31/21 19:12 Baso # (Auto) 0.05 K/uL (0-0.2) 08/31/21 19:12 Immature Gran # (Auto) 0.19 K/uL (0.00-0.02) H 08/31/21 19:12 ABG pH 7.45 (7.35-7.45) 08/31/21 19:22 ABG pCO2 41 mmHg (35-46) 08/31/21 19: ABG pO2 107 mmHg (80-95) H 08/31/21 19:22 ABG HCO3 28 mmol/L (19-24) H 08/31/21 19:22 ABG O2 Saturation 98.2 % (90-95) H 08/31/21 19:22 ABG Base Excess 3.7 mEq/L (-9-1.8) H 08/31/21 19:22 Gamaliel Test Pos (Pos) 08/31/21 19:22 Barometric Pressure 725.5 mm/Hg 08/31/21 19:22 Oxygen Given 5 L 08/31/21 19:22 POC Sodium 132 mmol/L (135-144) L 08/31/21 19:18 Sodium 131 mmol/L (136-145) L 08/31/21 19:12 POC Potassium 3.8 mmol/L (3.3-5.0) 08/31/21 19:18 Potassium 3.8 mmol/L (3.5-5.1) 08/31/21 19:12 POC Chloride 91 mmol/L (101-112) L 08/31/21 19:18 Chloride 92 mmol/L (98-107) L 08/31/21 19:12 Carbon Dioxide 27 mmol/L (21-32) 08/31/21 19:12 POC Total CO2 28 mmol/L (24-31) 08/31/21 19:18 Anion Gap 12 (3-11) H 08/31/21 19:12 POC Anion Gap 19.0 mmol/L (16-25) 08/31/21 19:18 POC BUN 15 mg/dl (7-18) 08/31/21 19:18 BUN 16 mg/dl (6-23) 08/31/21 19:12 Creatinine 0.70 mg/dl (0.6-1.2) 08/31/21 19:12 POC Creatinine 0.6 mg/dl (0.6-1.3) 08/31/21 19:18 Est Cr Clr Drug Dosing 74.1 ml/min 08/31/21 19:12 Est GFR ( Amer) 103.9 ml/min 08/31/21 19:12 Est GFR (Non-Af Amer) 89.7 ml/min 08/31/21 19:12 BUN/Creatinine Ratio 22.9 (10-20) H 08/31/21 19:12 Glucose 354 mg/dl (70-99(Fasting)) H* 08/31/21 19:12 POC Glucose 330 mg/dl (70-99) H* 08/31/21 19:06 POC Glucose (other) 385 mg/dl (70-99) H* 08/31/21 19:18 Lactate 1.1 mmol/L (0.4-2.0) 08/31/21 19:12 Calcium 8.8 mg/dl (8.5-10.1) 08/31/21 19:12 POC Ioniz Calcium Robbie 1.05 mmol/l (1.12-1.32) L 08/31/21 19:18 Magnesium 1.8 mg/dl (1.7-2.4) 08/31/21 19:23 Total Bilirubin 0.4 mg/dl (0.2-1.0) 08/31/21 19:12 AST 25 U/L (13-39) 08/31/21 19:12 ALT 17 U/L (7-52) 08/31/21 19:12 Alkaline Phosphatase 143 U/L (34-104) H 08/31/21 19:12 Total Creatine Kinase 329 U/L (26-192) H 08/31/21 19:12 Troponin I High Sens 31.1 pg/ml (0-14) H 08/31/21 19:12 Total Protein 7.0 gm/dl (6.0-8.3) 08/31/21 19:12 Albumin 2.8 gm/dl (3.4-5.0) L 08/31/21 19:12 Globulin 4.2 gm/dl (2.5-4.0) H 08/31/21 19:12 Albumin/Globulin Ratio 0.7 (0.9-2) L 08/31/21 19:12 TSH 0.708 uIu/ml (0.300-4.500) 08/31/21 19:12 Urine Color Yellow 08/31/21 20:30 Urine Appearance Cloudy (Clear) A 08/31/21 20:30 Urine pH 5.5 (4.5-7.5) 08/31/21 20:30 Ur Specific [place] > 1.045 (1.000-1.030) H 08/31/21 20:30 Urine Protein 2+ (Negative) H 08/31/21 20:30 Urine Glucose (UA) 3+ (Negative) H 08/31/21 20:30 Urine Ketones 3+ (Negative) H 08/31/21 20:30 Urine Blood 2+ (Negative) H 08/31/21 20:30 Urine Nitrite Negative (Negative) 08/31/21 20:30 Urine Bilirubin Negative (Negative) 08/31/21 20:30 Urine Urobilinogen Negative (Negative) 08/31/21 20:30 Ur Leukocyte Esterase Trace (Negative) H 08/31/21 20:30 Urine WBC (Auto) >30 /hpf (0-5) H 08/31/21 20:30 Urine RBC (Auto) 5-10 /hpf (0-4) H 08/31/21 20:30 U Hyaline Cast (Auto) 1-5 /lpf (0-5) 08/31/21 20:30 U Epithel Cells (Auto) 10-20 /lpf (0-5) H 08/31/21 20:30 Urine Bacteria (Auto) Negative (Negative) 08/31/21 20:30 Urine Yeast Budding (None Prsent) A 08/31/21 20:30 SARS-CoV-2, RNA, NAAT NEGATIVE (NEGATIVE) 08/31/21 19:[address] 08/31/21 18:48 CT OF THE CERVICAL SPINE WITHOUT CONTRAST CLINICAL HISTORY: Fall. COMPARISON STUDY: Cervical spine CT August 25, 2021. TECHNIQUE: Helical axial images of the cervical spine were obtained without IV contrast. Sagittal and coronal reconstructions were viewed. Automated exposure control was utilized for the study. A dose lowering technique was utilized adhering to the principles of ALARA. FINDINGS: This study is mildly compromised by artifact. There is straightening of the normal cervical lordosis. Vertebral body heights are maintained. No acute cervical spine fracture or subluxation is present. There is no prevertebral edema. Facet joints are intact. Extensive polypoid mucosal thickening of the sinuses is better depicted on the head CT. IMPRESSION: No acute cervical spine fracture or subluxation. ACT 112: Negative or not required by law. Electronically signed by: Jere Morales M.D. 08/31/2021 8:11 PM Chest X-Ray 08/31/21 18:48 XR chest 1V portable CLINICAL HISTORY: weakness COMPARISON STUDY: Chest radiograph August 25, 2021. FINDINGS: Lung volumes are normal. Lungs are clear. There is no pneumothorax or pleural effusion. Cardiac size is normal. Mediastinal contours are normal. There is no evidence for pulmonary edema. IMPRESSION: No acute cardiopulmonary findings. ACT 112: Negative or not required by law. Electronically signed by: Jere Morales M.D. 08/31/2021 7:[address] 08/31/21 18:48 CT OF THE HEAD WITHOUT CONTRAST CLINICAL HISTORY: Fall. COMPARISON STUDY: Head CT August 25, 2021. TECHNIQUE: Helical axial images of the head were obtained without IV contrast. Automated exposure control was utilized for the study. A dose lowering technique was utilized adhering to the principles of ALARA. FINDINGS: No acute intracranial hemorrhage, midline shift or mass effect is present. Basal cisterns are patent. There are no extra axial collections. Encephalomalacia adjacent to the frontal horns of the lateral ventricles with associated ventricular dilatation is unchanged. This is chronic. No findings to suggest acute dural sinus thrombosis or acute territorial infarct. The appearance of the brain is unchanged. No acute calvarial fracture is identified. Extensive mucosal thickening of the sinuses has progressed since prior CT. IMPRESSION: 1. No acute intracranial findings. No change in appearance of the brain. 2. No acute calvarial fracture. 3. Extensive sinus mucosal thickening which has progressed since prior head CT. ACT 112: Negative or not required by law. Electronically signed by: Jere Morales M.D. 08/31/2021 8:08 PM Chest CTA 08/31/21 19:32 CT ANGIOGRAPHY OF THE CHEST, PULMONARY EMBOLUS PROTOCOL CLINICAL HISTORY: Hypoxia. COMPARISON STUDY: Chest CT August 25, 2021. Chest CT performed earlier today. TECHNIQUE: Following IV administration of 119 mL of Optiray, helical axial images of the chest were obtained utilizing the pulmonary embolus protocol. Maximal intensity projections and sagittal and coronal reformats were viewed on an independent 3D workstation. IV contrast was administered without complicati on. Automated exposure control was utilized for the study. A dose lowering technique was utilized adhering to the principles of ALARA. CT DOSE: 2120.71 mGy.cm FINDINGS: No pulmonary emboli are identified. There is no thoracic aortic dissection. Size the heart is normal. There is moderate coronary artery calcification. Extensive mitral annular calcification is noted. Several mildly enlarged subcarinal lymph nodes measure up to 1.1 cm in short axis diameter. No pneumothorax or pleural effusion is noted. There is no consolidation to suggest pneumonia. Mild subpleural opacities favor atelectasis. Note is made of moderate circumferential wall thickening of the trachea. This does not spare the posterior tracheal wall. In addition, there is pronounced diffuse bronchial wall thickening, greater within the right lung. This results in significant airway narrowing. Secretions within the airways are present. No acute fracture is identified within visualized portions of the bony thorax. Visualized portions of the upper abdomen are unremarkable. IMPRESSION: 1. No pulmonary emboli identified. 2. Moderate circumferential tracheal wall thickening with mild adjacent infiltration. Extensive bronchial wall thickening, greater within the right lung which results in significant airway narrowing. Long segment tracheobronchial wall thickening appearance is nonspecific however differential considerations include Erica's, sarcoidosis, amyloidosis or an infectious process. Pulmonary consultation is recommended. 3. Several mildly enlarged subcarinal lymph nodes which are probably reactive. An underlying neoplastic process is considered unlikely however a follow up chest CT in 3 months is recommended. 4. No acute traumatic findings within the chest. ACT 112: Negative or not required by law. Electronically signed by: Jere Morales M.D. 08/31/2021 8:26 PM Diagnostic Findings Soft tissue neck CT initial read: Airway intact. Epiglottis, trachea in the upper lung pelletier are clear. No retropharyngeal fluid. Inflammatory changes around the right parotid gland. No duct dilation or stone seen. Small nearby lymph nodes. Thickening of the right platysma and overlying subcutaneous fat infiltrate or changes. Extensive sinus disease with opacification of ethmoid air cells, fluid in the left sphenoid sinus and fluid in the left maxillary sinus. Right maxillary sinus and right sphenoid sinus mucosal thickening. No acute findings in the bones. Impression: Right parotiditis. Sinus disease. EKG as per my interpretation: Rate 110, sinus tachycardia, normal axis, T wave abnormalities septal leads
[2021-08-31] MEDS ORDERED: INSULIN GLARGINE SOLOSTAR 100 UNITS/ML 3 ML PEN SC STA (23:34)
[2021-08-31] MEDS ORDERED: methylPREDNISolone 20 MG in SYRINGE 0 ML IV STA (23:34)
[2021-08-31] MEDS ORDERED: SODIUM CHLORIDE 0.9% 1000ML 1,000 ML IV ONE (23:38)
[2021-08-31] MEDS ORDERED: GLUCOSE 40% GEL 15 GM TUBE PO PRN (23:38)
[2021-08-31] MEDS ORDERED: GLUCAGON FOR INJ 1 MG VIAL SQ PRN (23:38)
[2021-08-31] MEDS ORDERED: DEXTROSE 50% 50 ML SYRINGE IV PRN (23:38)
[2021-08-31] MEDS ORDERED: POTASSIUM CHLORIDE PWD 20 MEQ PACK PO STA (23:38)
[2021-08-31] MEDS ORDERED: GLUCOSE 10 TABS/TUBE PO PRN (23:38)
[2021-09-01] MEDS: carvediloL 6.25 MG TAB PO SCH ×3 (00:32→20:38)
[2021-09-01] MEDS: INSULIN ASPART PER UNIT SC SCH ×5 (01:53→20:32)
[2021-09-01] MEDS ORDERED: XOPENEX/ATROVENT 1.25mg/0.5MG NEB COMBO NEB SCH (02:03)
[2021-09-01] MEDS: IPRATROPIUM BROMIDE NEB SOLN 0.02% 2.5 ML VIAL INH SCH ×3 (02:18→12:26)
[2021-09-01] MEDS: LEVALBUTEROL 1.25MG/0.5ML NEB INH SCH ×3 (02:18→12:26)
[2021-09-01] MEDS ORDERED: MEROPENEM CONSULT ACTIVE PRN (03:35)
[2021-09-01] MEDS ORDERED: VANCOMYCIN CONSULT ACTIVE PRN (03:35)
[2021-09-01] MEDS ORDERED: VANCOMYCIN HCL 1,000 MG in SODIUM CHLORIDE 0.9% 250 ML IV STA (03:35)
[2021-09-01] MEDS ORDERED: VANCOMYCIN HCL 1,750 MG in SODIUM CHLORIDE 0.9% 500 ML IV ONE (04:15)
[2021-09-01] MEDS: MEROPENEM 500 MG in SYRINGE 0 ML IV SCH ×2 (04:18→10:24)
--- NOTE | 2021-09-01 06:59 | CT Scan Report ---
CT OF THE NECK WITHOUT CONTRAST CLINICAL HISTORY: Neck swelling. COMPARISON STUDY: No previous studies for comparison. TECHNIQUE: Axial images of the neck were obtained without IV contrast. Automated exposure control was utilized for the study. A dose lowering technique was utilized adhering to the principles of ALARA. FINDINGS: There is extensive sinus opacification. This has significantly progressed since head CT of August 25, 2021. A small amount of fluid within the bilateral mastoid air cells is noted. Evaluation of the neck is suboptimal on this unenhanced examination. The epiglottis is normal. Tonsils are mildly e nlarged. There is asymmetric enlargement of the right parotid gland with adjacent stranding. There is thickening of the right platysma. Subtle stranding extends into the lower neck and upper chest withi n the subcutaneous tissues. No fluid collection to suggest an abscess is identified on this unenhance d exam. There are prominent right-sided cervical lymph nodes which are probably reactive. No sialolit h is identified. There is no soft tissue gas within the neck. Visualized portions of the upper chest again demonstrate tracheal wall thickening with adjacent stranding. No acute fracture or suspicious l esion is identified within the visualized skeletal structures. IMPRESSION: 1. Asymmetric enlargement of the right parotid gland with adjacent stranding and thickening of the ri ght platysma. Stranding extends inferiorly into the neck and upper chest. This represents right parot itis. No sialolith. 2. Mildly enlarged tonsils. No abscess identified on this unenhanced exam. 3. Significant progression of sinusitis since head CT of August 25, 2021. 4. Tracheal wall thickening better depicted on chest CT of August 31, 2021. Overall constellation of fin dings is nonspecific but suggests an infectious or inflammatory process. An autoimmune disorder or va sculitis is within the differential. ACT 112: Negative or not required by law. Electronically signed by: Jere Morales M.D. 09/01/2021 6:57 AM
[2021-09-01 07:29] LABS: Hematocrit (blood only) 36.2 % (37-47); Hemoglobin 11.9 g/dL (12.0-16.0); Mean Corpuscular Hemoglobin 28.8 pg (25-34); Mean Corpuscular Hgb Conc 32.9 g/dL (32-36); Mean Corpuscular Volume 87.7 fL (80-100); Mean Platelet Volume 9.1 fL (7.4-10.4); Platelet Count 394 K/uL (130-400); RDW Coefficient of Variation 13.4 % (11.5-14.5); RDW Standard Deviation 43.2 fL (36.4-46.3); Red Blood Count 4.13 M/uL (4.2-5.4); White Blood Count 26.65 K/uL (4.8-10.8)
[2021-09-01 07:54] LABS: Basophils # (auto) 0.02 K/uL (0-0.2); Basophils % (auto) 0.1 %; Eosinophils # (auto) 0.05 K/uL (0-0.5); Eosinophils % (auto) 0.2 %; Immature Granulocytes # (auto) 0.14 K/uL (0.00-0.02); Immature Granulocytes % (auto) 0.5 %; Lymphocytes % (auto) 3.8 %; Monocytes # (auto) 0.98 K/uL (0.11-0.59); Monocytes % (auto) 3.7 %; Neutrophils # (auto) 24.46 K/uL (1.4-6.5); Neutrophils % (auto) 91.7 %; Rouleaux 1+
[2021-09-01 08:10] LABS: BUN Creatinine Ratio 22.2 (10-20); Calcium 8.3 mg/dl (8.5-10.1); Creatinine Clr Calc Pharmacy 94.6 ml/min; Est GFR (African American) 113.2 ml/min; Est GFR (Non-African American) 97.6 ml/min
[2021-09-01] MEDS ORDERED: INSULIN GLARGINE SOLOSTAR 100 UNITS/ML 3 ML PEN SC SCH ×3 (09:00)
[2021-09-01] MEDS: PANTOprazole 40 MG TAB PO SCH (09:45)
[2021-09-01] MEDS: lisinopril 2.5 MG TAB PO SCH (09:45)
[2021-09-01] MEDS: ASPIRIN 81 MG ECTAB PO SCH (09:45)
[2021-09-01] MEDS: predniSONE 20 MG TAB PO SCH (09:45)
[2021-09-01] MEDS: ENOXAPARIN INJ 40 MG/0.4 ML SYR SQ SCH (09:46)
--- NOTE | 2021-09-01 10:27 | Pharmacy Report ---
Pharmacy Vanc AUC Short Note - Date of Service September 01, 2021 - Assessment & Plan Assessment 66 year old F admitted with shortness of breath and alerted mental status found to have right parotitis. Started on vancomycin + meropenem. PMH significant for COPD, CAD status post stent, hypertension, hyperlipidemia DM 2 insulin requiring, mood disorder, past tobacco abuse. Recent hospital admission 08/25/21-08/28/21 for acute bacterial sinusitis. Patient treated with ceftriaxone and discharged on doxycyline. Negative MRSA nasal swab, BC pending Plan Vancomycin * Loading dose: 1750 mg * Maintenance dose: 1250 mg IV every 12 hours * Above regimen predicted to achieve target AUC/TAHMINA of 400-600 mg/L.hr and may be associated with a 11 % risk of nephrotoxicity * AUC at steady state: 511 * Trough at steady state: 15.3 * Random level ordered for 09/03 AM Meropenem * continue 500 mg IV every 6 hours * No h/o of MDRO in [place] records - consider changing to cefepime + metronidazole (PCN allergy listed, pt tolerated ceftriaxone in recent past) Pharmacy will continue to follow and will adjust dose/frequency as necessary. Thank you.
[2021-09-01] MEDS ORDERED: VANCOMYCIN HCL 1,000 MG in SODIUM CHLORIDE 0.9% 250 ML IV SCH (12:00)
[2021-09-01] MEDS: VANCOMYCIN HCL 1,250 MG in SODIUM CHLORIDE 0.9% 250 ML IV SCH (12:59)
--- NOTE | 2021-09-01 15:18 | Pulmonary Consultation ---
Date of Consultation September 01, 2021 Assessment & Plan (1) Acute respiratory failure with hypoxia: (2) Abnormal CT scan, chest: (3) Wheezin-year-old female with a past medical history of insulin-dependent diabetes mellitus, obesity, GERD and hypertension presenting to the hospital due to confusion, shortness of breath and neck pain. The diffuse tracheal wall and bronchial wall thickening are likely secondary to an acute inflammatory/infectious process. I placed an order for an EDU screen, ANCA screen and rheumatoid factor. Respiratory bio fire ordered as well. Agree with empiric antibiotics at this time. She also has enlargement of the right parotid gland with adjacent stranding and thickening of the right platysma which may also be related to an infectious/inflammatory process. She does present with wheezing on exam. Agree with empiric low-dose steroids. We will start the patient on Breo Ellipta while in the hospital and likely recommend this on discharge as well at least in the interim. DuoNebs every 6 hours ordered as well. If her symptoms are still persistent after the weekend, can consider bronchoscopy with mucosal biopsies to evaluate for an inflammatory condition or granulomatous condition. Discussed with hospitalist. Will continue to follow along with you. Thank you for the consult. History of Present Illness Reason for Consultation: Abnormal CT chest Attending Physician: Crystal Freeman MD History of Present Illness 66-year-old female with a past medical history of insulin-dependent diabetes mellitus, hypertension and bipolar disorder presenting to the hospital due to altered mental status and cough. Patient was just discharged from the hospital on 08/28/2021 due to DKA. Patient notes that she had some swelling at the base of her neck on the right side with pain. She also had increased cough that occasionally is productive of sputum. Denies hemoptysis. She also has right- sided chest pain that she relates is secondary to the cough. She felt weak yesterday had a fall. She denies any shortness of breath at rest. No fevers or chills. She denies any sick contacts. She notes that she was a smoker decades ago, but was mostly a social smoker. She denies any history of lung disease and was never evaluated by my looper fixer in the past which she can recall. Currently she is on vancomycin, cefepime and Flagyl. She is also on 20 mg prednisone daily. Procalcitonin on admission was 0.49. She has a significantly elevated white count of 26,600. No significant peripheral eosinophilia noted on labs. Urinalysis demonstrated positive protein, glucose, ketones and blood. Budding yeast were also noted. Renal function is within normal limits. Mild hyponatremia seen likely related to her elevated glucose. Chest CTA yesterday demonstrated circumferential tracheal wall thickening and bronchial wall thickening. Mildly enlarged subcarinal and mediastinal nodes were noted. Chest CTA demonstrated asymmetric enlargement the right parotid gland with adjacent stranding and thickening of the right platysma. Progression of sinusitis was noted compared to her CT head from 08/25/2021.. Allergies Allergy/AdvReac Type Severity Reaction Status Date / Time egg Allergy Mild Unknown Verified 09/01/21 09:59 Penicillins Allergy Mild Unknown Verified 09/01/21 07:06 codeine Allergy Unknown Verified 09/01/21 07:06 Sulfa (Sulfonamide Allergy Unknown Verified 09/01/21 07:06 Antibiotics) Home Medications Medication Instructions Recorded Confirmed Type aspirin 81 mg capsule 81 mg PO DAILY #30 cap 03/03/21 08/31/21 Rx atorvastatin 40 mg tablet 40 mg PO DAILY #30 tab 03/03/21 08/31/21 Rx blood sugar diagnostic (OneTouch #100 ea 03/03/21 08/25/21 Rx Verio test strips) carvedilol 6.25 mg tablet 6.25 mg PO BID #180 tab 03/03/21 08/31/21 Rx cetirizine 10 mg tablet (Zyrtec) 10 mg PO DAILY PRN #30 tab 03/03/21 08/31/21 Rx lisinopril 2.5 mg tablet 2.5 mg PO DAILY #30 tab 03/03/21 08/31/21 Rx pantoprazole 40 mg tablet,delayed 40 mg PO DAILY #30 tab 03/03/21 08/31/21 Rx release pen needle, diabetic 31 gauge x #50 ea 03/03/21 08/25/21 Rx 08/28" (Easy Comfort Pen [place]) L.acidop,casei,lactis,rham-B.lact,ramon 2 cap PO DAILY 14 Days #28 cap 08/28/21 08/31/21 Rx 625 mg (10 billion cell) capsule (Advanced Probiotic) doxycycline hyclate 100 mg capsule 100 mg PO BID 5 Days #10 cap 08/28/21 08/31/21 Rx insulin aspart U-100 100 unit/mL 15 unit SUBCUT TID #15 ml 08/28/21 08/31/21 Rx (3 mL) subcutaneous pen (Novolog Flexpen U-100 Insulin aspart) magnesium chloride 64 mg 64 mg PO BID 5 Days #10 tab 08/28/21 08/31/21 Rx (magnesium chloride) tablet,delayed release (Mag 64) dulaglutide 1.5 mg/0.5 mL 1.5 mg SUBCUT WK 08/31/21 08/31/21 History subcutaneous pen injector (Trulicity) insulin glargine 100 unit/mL 25 unit SUBCUT HS 08/31/21 08/31/21 History subcutaneous solution (Lantus U-100 Insulin) ondansetron 4 mg disintegrating 4 mg PO Q8 PRN 08/31/21 08/31/21 History tablet Patient History Medical History (Updated 09/01/21 @ 15:38 by Marty Claire MD) Abnormal CT scan, chest Bipolar disorder, unspecified CAD (coronary artery disease) COPD (chronic obstructive pulmonary disease) Diabetic ketoacidosis Dyslipidemia GERD without esophagitis History of heart attack Hypertension Type 2 diabetes mellitus Wheezing Surgical History (Updated 09/01/21 @ 07:06 by Lianne Solorio) History of surgical removal of ganglion cyst Hx of cholecystectomy Hx of tonsillectomy Family History (System 09/01/21 @ 07:06 by Lianne Solorio) Other Breast cancer Diabetes Myocardial infarction Denies family history of Ovarian cancer Prostate cancer Colorectal cancer Social History (System 09/01/21 @ 07:06 by Lianne Solorio) Smoking Status: Former smoker Age Quit Using Tobacco: 61; Second Hand Exposure: No; Do You Dip or Chew Tobacco: No; Tobacco Cessation Education Requested by Patient: No Hx Alcohol Use: No Hx Substance Use: Yes Preferred Language: Thai Communication Ability: Effective Visual Impairment: No Limitations Hearing Ability: Normal Senior Front End Developer Required: No Beliefs That Will Affect Care: None marital status: Single Current Living Situation: Alone current occupational status: retired How many Children do You have: 1 Other Information That Helps Us Care for You: No Feels Safe at Home: Yes Safety Concerns: Feels Safe At This Time Assistive Devices: Walker Review of Systems Review of Systems: All systems reviewed & are unremarkable except as noted in HPI & below Physical Exam Constitutional: WD/WN, vitals as above Coughing frequently Eyes: PERRL, conjunctivae normal, anicteric sclerae ENMT: Mild swelling noted in the right submandibular region. Tender to palpation. Airway patent. Neck: Thyroid: normal thyroid; no thyromegaly Respiratory: Diffuse faint expiratory wheeze bilaterally. Coughing throughout the exam. Diminishment bilaterally. Cardiovascular: RRR, no murmur, no edema Gastrointestinal (Abdomen): normal bowel sounds, soft, nontender, no hepatosplenomegaly Musculoskeletal: no cyanosis or clubbing, extremities motor strength 5/5 Skin: no rashes, warm and dry Neurologic: PERRL, EOMI, accommodation nl, no face palsy, no dysarthria Results & Data Results & Data ([facility]) Vital Signs (Past 12 Hours) Vital Signs Temp Pulse Pulse Resp BP BP Pulse Ox 09/01/21 12:27 84 18 96 09/01/21 10:48 36.8 C 79 18 100/65 96 09/01/21 10:04 20 96 09/01/21 08:10 88 09/01/21 07:38 36.8 C 88 18 115/77 98 09/01/21 07:30 77 16 96 09/01/21 05:11 97 PG Care Time/CCT Total # of Minutes Spent Total Time Spent with Patient: Total time spent is greater than 50% in coordination of care (as documented) at patient's floor/unit and/or counseling patient: Coding Level of Care Code 28832 Initial Inpt Care Lvl 3 Diagnoses Acute respiratory failure with hypoxia J96.[address] scan, chest R93.89 Wheezing R06.2
[2021-09-01] MEDS: ALBUT/IPRATROP 3MG/0.5MG NEB 3 ML VIAL NEB SCH ×2 (16:36→20:02)
[2021-09-01] MEDS: DOXYCYCLINE HYCLATE 100 MG in DEXTROSE 5% 100 ML IV SCH (17:09)
[2021-09-01] MEDS: FLUTICASONE/VILANTEROL 200/25MCG 14 PUFFS/INHALER INH SCH (17:09)
[2021-09-01] MEDS: metroNIDAZOLE 500 MG/100 ML BAG IV SCH (17:18)
[2021-09-01] MEDS: CEFEPIME 2,000 MG in SYRINGE 0 ML IV SCH (17:47)
--- NOTE | 2021-09-01 18:01 | Electrocardiogram Report ---
Test Reason : Blood Pressure : / mmHG Vent. Rate : 108 BPM Atrial Rate : 108 BPM P-R Int : 134 ms QRS Dur : 082 ms QT Int : 352 ms P-R-T Axes : 056 053 050 degrees QTc Int : 471 ms Sinus tachycardia Otherwise normal ECG When compared with ECG of 25-AUG-2021 09:14, No significant change was found Confirmed by Dewey Bernard ([id number] on 09/01/2021 6:01:19 PM Referred By: REFERRED SELF Confirmed By:Daniel Bernard
[2021-09-01] MEDS: INSULIN GLARGINE SOLOSTAR 100 UNITS/ML 3 ML PEN SC SCH (20:35)
--- NOTE | 2021-09-01 22:33 | Hospitalist Progress Note ---
Date of Service September 01, 2021 Assessment & Plan (1) Acute respiratory failure with hypoxia: Plan: COPD exacerbation Present on admission with SOB and weakness after found on the floor by her sister CTA chest showed No PE. Moderate circumferential tracheal wall thickening with mild adjacent infiltration. Extensive bronchial wall thickening, greater within the right lung which results in significant airway narrowing. Long segment tracheobronchial wall thickening appearance is nonspecific however differential considerations include Erica's, sarcoidosis, amyloidosis or an infectious process. Several mildly enlarged subcarinal lymph nodes which are probably reactive. Received Levaquin and IV solumedrol in the ER She was starting on IV Vanco and Meropenem Will discontinue the meropenem and start on Cefepime and continue the Vanco IV Pulm on board Might consider bronch if no improvement in respiratory status EDU, C-ANCA and ESR pending Continue oxygen supplement with 6 Litter [place] Breo added by pulm Continue monitor closely Right Parotitis CT showed asymmetric enlargement of the right parotid gland with adjacent stranding and thickening of the right platysma. Stranding extends inferiorly into the neck and upper chest. Continue IV abx ENT consult Continue clear liquid diet Speech on board Elevated troponin Demand ischemia due to acute hypoxic respiratory failure Troponin on admission mildly elevated at 31 Denies any chest pain Continue aspirin, carvedilol Stable Encephalopathy Possible due to hypoxia CT head showed no acute intracranial abnormality Mental status improves Fall Weakness Continue PT/OT Fall precaution Continue PT/OT eval DM type 2 BS elevated Continue Lantus and novolog sliding scale Continue monitor BS CAD (coronary artery disease): No cardiac symptoms Continue carvedilol, lisinopril, Lipitor, aspirin Hypertension: Continue carvedilol and lisinopril Dyslipidemia: Continue atorvastatin DVT px on Lovenox Code status FULL code Admission and Anticipated Discharge Date Admission Date: August 31, 2021 Subjective Pt was seen and examined for follow up of SOB, lethargy Lying in bed with no acute distress Pt is starting to be awake now She continues to required 6L NC oxygen Denies any chest pain, palpitation, dizziness and SOB Review of Systems Review of Systems: All systems reviewed & are unremarkable except as noted in Subjective Physical Exam Physical Exam: General- No acute distress Head- atraumatic Eyes- PERRL, EOMI, ENT- +swelling in right submandibular area Neck- supple, no JVD Lungs- +diminished BS, +mild wheezing Heart- regular rhythm; no murmur Abdomen- normal bowel sounds, soft, nontender Extremities- no calf tenderness Neuro- alert, oriented x 3; PERRL, EOMI; no facial palsy; no dysarthria Skin- warm & dry Results & Data Results & Data ([facility]) Vital Signs (Past 12 Hours) Vital Signs Temp Pulse Resp BP BP Pulse Ox 09/01/21 22:12 36.6 C 66 18 100/67 97 09/01/21 20:30 72 103/72 09/01/21 20:04 70 14 99 09/01/21 18:41 36.5 C 81 17 106/67 96 09/01/21 15:09 36.4 C L 75 17 93/63 L 95 09/01/21 12:27 84 18 96 09/01/21 10:48 36.8 C 79 18 100/65 96
[2021-09-01 22:44] LABS: Adenovirus PCR Not Detected (NotDetected); Bordetella parapertussis PCR Not Detected (NotDetected); Bordetella pertussis PCR Not Detected (NotDetected); Chlamydia pneumoniae PCR Not Detected (NotDetected); Coronavirus 229E PCR Not Detected (NotDetected); Coronavirus CoV-2 (COVID19)PCR Not Detected (NotDetected); Coronavirus HKU1 PCR Not Detected (NotDetected); Coronavirus NL63 PCR Not Detected (NotDetected); Coronavirus OC43PCR Not Detected (NotDetected); Human Metapneumovirus PCR Not Detected (NotDetected); Influenza A PCR Not Detected (NotDetected); Influenza B PCR Not Detected (NotDetected); Mycoplasma pneumoniae PCR Not Detected (NotDetected); Parainfluenza Virus 1 PCR Not Detected (NotDetected); Parainfluenza Virus 2 PCR Not Detected (NotDetected); Parainfluenza Virus 3 PCR Not Detected (NotDetected); Parainfluenza Virus 4 PCR Not Detected (NotDetected); Respiratory Syncytial VirusPCR Not Detected (NotDetected); Rhinovirus/Enterovirus PCR Not Detected (NotDetected)
[2021-09-02] MEDS: ALBUT/IPRATROP 3MG/0.5MG NEB 3 ML VIAL NEB SCH ×5 (00:43→19:23)
[2021-09-02] MEDS: VANCOMYCIN HCL 1,250 MG in SODIUM CHLORIDE 0.9% 250 ML IV SCH ×3 (01:04→23:34)
[2021-09-02] MEDS: metroNIDAZOLE 500 MG/100 ML BAG IV SCH ×3 (01:23→17:15)
[2021-09-02] MEDS: CEFEPIME 2,000 MG in SYRINGE 0 ML IV SCH ×2 (03:47→16:16)
[2021-09-02] MEDS: DOXYCYCLINE HYCLATE 100 MG in DEXTROSE 5% 100 ML IV SCH ×2 (03:47→16:16)
[2021-09-02] MEDS: ACETAMINOPHEN 325 MG TAB PO PRN ×3 (03:56→21:43)
[2021-09-02] MEDS: predniSONE 20 MG TAB PO SCH (07:40)
[2021-09-02] MEDS: PANTOprazole 40 MG TAB PO SCH (07:40)
[2021-09-02] MEDS: carvediloL 6.25 MG TAB PO SCH ×2 (07:40→21:38)
[2021-09-02] MEDS: lisinopril 2.5 MG TAB PO SCH (07:40)
[2021-09-02] MEDS: ENOXAPARIN INJ 40 MG/0.4 ML SYR SQ SCH (07:40)
[2021-09-02] MEDS: ASPIRIN 81 MG ECTAB PO SCH (07:40)
[2021-09-02] MEDS: FLUTICASONE/VILANTEROL 200/25MCG 14 PUFFS/INHALER INH SCH (07:41)
[2021-09-02 08:37] LABS: Creatinine Clr Calc Pharmacy 89.5 ml/min; Est GFR (African American) 110.5 ml/min; Est GFR (Non-African American) 95.4 ml/min
[2021-09-02] MEDS: INSULIN ASPART PER UNIT SC SCH ×4 (08:38→21:39)
[2021-09-02] MEDS: INSULIN GLARGINE SOLOSTAR 100 UNITS/ML 3 ML PEN SC SCH ×2 (08:38→21:39)
[2021-09-02 08:44] LABS: Hematocrit (blood only) 36.2 % (37-47); Hemoglobin 12.1 g/dL (12.0-16.0); Mean Corpuscular Hemoglobin 30.2 pg (25-34); Mean Corpuscular Hgb Conc 33.4 g/dL (32-36); Mean Corpuscular Volume 90.3 fL (80-100); Mean Platelet Volume 9.3 fL (7.4-10.4); Platelet Count 406 K/uL (130-400); RDW Coefficient of Variation 13.1 % (11.5-14.5); RDW Standard Deviation 43.6 fL (36.4-46.3); Red Blood Count 4.01 M/uL (4.2-5.4); White Blood Count 27.31 K/uL (4.8-10.8)
[2021-09-02 09:00] LABS: BUN Creatinine Ratio 18.6 (10-20); Calcium 8.6 mg/dl (8.5-10.1); Est GFR (African American) 109.9 ml/min; Est GFR (Non-African American) 94.8 ml/min; Potassium 3.7 mmol/L (3.5-5.1)
[2021-09-02] MEDS ORDERED: INSULIN HUMAN REGULAR PER UNIT 5 UNITS in SYRINGE 0 ML IV STA (18:30)
[2021-09-02] MEDS ORDERED: PHARMACY GLYCEMIC MGMT CONSULT PRN (20:05)
--- NOTE | 2021-09-02 21:25 | Pharmacy Report ---
Pharmacy Glycemic Short Note 2 - Date of Service September 02, 2021 - Glycemic Short BSG Results (Last 24 hours): 09/02/21 09/02/21 09/02/21 00:00 00:19 07:33 Glucose 171 H POC Glucose 249 H 250 H 09/02/21 09/02/21 09/02/21 07:53 11:42 16:45 Glucose POC Glucose 176 H 181 H 240 H 09/02/21 09/02/21 09/02/21 18:18 18:20 18:22 Glucose POC Glucose 306 H* 388 H* 310 H* 09/02/21 21:11 Glucose POC Glucose 259 H OUTPATIENT ANTIDIABETIC REGIMEN: * Lantus 25 units SQ HS * Novolog 15 units SQ AC * Trulicity 1.5 mg SQ every Saturday * HbA1c = 14.9% (08/25/21) ASSESSMENT: * 66 yo F admitted 08/31/21 secondary to sepsis. Pharmacy was consulted at dinnertime to assist with inpatient glycemic management. * Patient has been on Prednisone 20 mg daily which is likely the cause of postprandial hyperglycemia. Remains on multiple antibiotics and has a T2DM diet ordered. * Will continue with previously ordered 30 units of Lantus BID. Novolog parameters need tightened to help with steroid-induced hyperglycemia. Also, will initiate NPH at 0.35 units/kg starting tomorrow morning with Prednisone. PLAN FOR INPATIENT GLYCEMIC CONTROL: * Basal insulin * Lantus 30 units SQ BID * NPH 30 units SQ daily - hold if prednisone held/discontinued * Bolus insulin * NovoLog per scale ACHS or Q6hrs while NPO * Goal Range: Low 110 mg/dL - High 140 mg/dL * Correction Factor: 15 mg/dL/unit * Nutritional / Prandial insulin per carb ratio of 1 unit per 5 grams CHO consumed
--- NOTE | 2021-09-02 23:15 | Hospitalist Progress Note ---
Date of Service September 02, 2021 Assessment & Plan (1) Acute respiratory failure with hypoxia: Plan: COPD exacerbation Present on admission with SOB and weakness after found on the floor by her sister CTA chest showed No PE. Moderate circumferential tracheal wall thickening with mild adjacent infiltration. Extensive bronchial wall thickening, greater within the right lung which results in significant airway narrowing. Long segment tracheobronchial wall thickening appearance is nonspecific however differential considerations include Erica's, sarcoidosis, amyloidosis or an infectious process. Several mildly enlarged subcarinal lymph nodes which are probably reactive. Received Levaquin and IV solumedrol in the ER She was starting on IV Vanco and Meropenem Meropenem was discontinued and started on Cefepime and continue the Vanco IV Doxycycline was starting, will d/c Vanco Pulm on board Might consider bronch if no improvement in respiratory status EDU, C-ANCA and ESR pending Continue oxygen supplement with 2 Litter NC Breo added by pulm Continue monitor closely Right Parotitis CT showed asymmetric enlargement of the right parotid gland with adjacent stranding and thickening of the right platysma. Stranding extends inferiorly into the neck and upper chest. Continue IV abx ENT consult - Pending Speech on board Diet advanced as tolerated Elevated troponin Demand ischemia due to acute hypoxic respiratory failure Troponin on admission mildly elevated at 31 Denies any chest pain Continue aspirin, carvedilol Stable Encephalopathy Possible due to hypoxia CT head showed no acute intracranial abnormality Mental status improves Resolved Fall Weakness Continue PT/OT Fall precaution Continue PT/OT eval plan to go to rehab DM type 2 BS elevated Continue Lantus and novolog sliding scale Continue monitor BS CAD (coronary artery disease): No cardiac symptoms Continue carvedilol, lisinopril, Lipitor, aspirin Hypertension: Continue carvedilol and lisinopril Dyslipidemia: Continue atorvastatin DVT px on Lovenox Code status FULL code Admission and Anticipated Discharge Date Admission Date: August 31, 2021 Subjective Pt was seen and examined for follow up of SOB, lethargy Lying in bed with no acute distress She said that her breathing is much better Curently she is on 2L NC oxygen Denies any chest pain, palpitation, dizziness and SOB Review of Systems Review of Systems: All systems reviewed & are unremarkable except as noted in Subjective Physical Exam Physical Exam: General- No acute distress Head- atraumatic Eyes- PERRL, EOMI, ENT- +swelling in right submandibular area Neck- supple, no JVD Lungs- +diminished BS, +faint wheezing Heart- regular rhythm; no murmur Abdomen- normal bowel sounds, soft, nontender Extremities- no calf tenderness Neuro- alert, oriented x 3; PERRL, EOMI; no facial palsy; no dysarthria Skin- warm & dry Results & Data Results & Data ([facility]) Vital Signs (Past 12 Hours) Vital Signs Temp Pulse Pulse Resp BP BP Pulse Ox 09/02/21 21:20 91 H 22 132/97 99 09/02/21 19:25 80 18 97 09/02/21 18:30 36.4 C L 80 18 125/83 95 09/02/21 16:00 68 09/02/21 15:16 36.3 C L 77 17 109/67 96 09/02/21 14:51 91 09/02/21 14:36 09/02/21 14:09 76 18 96 Pulse Ox 09/02/21 21:20 09/02/21 19:25 09/02/21 18:30 09/02/21 16:00 09/02/21 15:16 09/02/21 14:51 09/02/21 14:36 96 09/02/21 14:09
[2021-09-03] MEDS: INSULIN ASPART PER UNIT SC SCH ×6 (00:35→21:34)
[2021-09-03] MEDS: ALBUT/IPRATROP 3MG/0.5MG NEB 3 ML VIAL NEB SCH ×4 (00:37→19:20)
[2021-09-03] MEDS: metroNIDAZOLE 500 MG/100 ML BAG IV SCH ×3 (00:49→15:44)
[2021-09-03] MEDS: CARBOHYDRATES FOR HYPOGLYCEMIA PO PRN ×2 (03:31→03:50)
[2021-09-03] MEDS: DOXYCYCLINE HYCLATE 100 MG in DEXTROSE 5% 100 ML IV SCH ×2 (04:27→15:43)
[2021-09-03] MEDS: CEFEPIME 2,000 MG in SYRINGE 0 ML IV SCH ×2 (04:55→15:43)
[2021-09-03] MEDS: predniSONE 20 MG TAB PO SCH (08:13)
[2021-09-03] MEDS: PANTOprazole 40 MG TAB PO SCH (08:13)
[2021-09-03] MEDS: ASPIRIN 81 MG ECTAB PO SCH (08:13)
[2021-09-03] MEDS: ENOXAPARIN INJ 40 MG/0.4 ML SYR SQ SCH (08:13)
[2021-09-03] MEDS: lisinopril 2.5 MG TAB PO SCH (08:13)
[2021-09-03] MEDS: FLUTICASONE/VILANTEROL 200/25MCG 14 PUFFS/INHALER INH SCH (08:14)
[2021-09-03] MEDS: carvediloL 6.25 MG TAB PO SCH ×2 (08:14→21:26)
[2021-09-03] MEDS ORDERED: INSULIN HUMAN NPH SC SCH (09:00)
[2021-09-03 09:48] LABS: Hematocrit (blood only) 39.3 % (37-47); Hemoglobin 13.1 g/dL (12.0-16.0); Mean Corpuscular Hemoglobin 29.9 pg (25-34); Mean Corpuscular Hgb Conc 33.3 g/dL (32-36); Mean Corpuscular Volume 89.7 fL (80-100); Mean Platelet Volume 9.2 fL (7.4-10.4); Platelet Count 436 K/uL (130-400); RDW Standard Deviation 42.7 fL (36.4-46.3); Red Blood Count 4.38 M/uL (4.2-5.4); White Blood Count 26.51 K/uL (4.8-10.8)
[2021-09-03] MEDS ORDERED: guaiFENesin 200 MG TAB PO PRN ×2 (09:48→18:56)
[2021-09-03 10:11] LABS: BUN Creatinine Ratio 15.8 (10-20); Calcium 8.7 mg/dl (8.5-10.1); Creatinine Clr Calc Pharmacy 93.6 ml/min; Est GFR (African American) 111.2 ml/min; Est GFR (Non-African American) 95.9 ml/min; Potassium 3.9 mmol/L (3.5-5.1)
--- NOTE | 2021-09-03 10:57 | Pharmacy Report ---
Pharmacy Vanc AUC Short Note - Date of Service September 03, 2021 - Assessment & Plan Assessment * 66 year old F admitted on cefepime, doxycycline, metronidazole, and vancomycin for parotitis and COPD exacerbation * PMH significant for COPD, CAD status post stent, hypertension, hyperlipidemia DM 2 insulin requiring, mood disorder, past tobacco abuse. * Recent hospital admission 08/25/21-08/28/21 for acute bacterial sinusitis. Patient treated with ceftriaxone and discharged on doxycyline. * Negative MRSA nasal swab, blood cultures with NGTD, urine culture with yeast not C. albicans. ? contaminant Vancomycin * AUC/TAHMINA is the preferred PK/PD target for vancomycin, which is effective and associated with decreased risk of nephrotoxicity compared to traditional trough targets * Random level this AM of 15.0 mcg/mL is estimated to relate to a trough of 10.9 mcg/mL and an AUC of 496 mg/L/hr, which is in the range of 400-600 mg/L/hr. * Trough levels are not required for AUC monitoring. Will therefore continue with random levels with AM labs, the next of which can be checked in 48 hours Plan * Continue vancomycin 1250 mg IV q12h * Random level with AM labs on 09/05 Pharmacy will continue to follow and will adjust dose/frequency as necessary. Thank you.
--- NOTE | 2021-09-03 12:45 | Pulmonology Progress Note ---
Date of Service September 03, 2021 Assessment & Plan (1) Acute respiratory failure with hypoxia: (2) Abnormal CT scan, chest: (3) Wheezing: Plan: 66-year-old female with a past medical history of insulin-dependent diabetes mellitus, obesity, GERD and hypertension presenting to the hospital due to confusion, shortness of breath and neck pain. The diffuse tracheal wall and bronchial wall thickening are likely secondary to an acute inflammatory/infectious process. I placed an order for an EDU screen, ANCA screen and rheumatoid factor. Respiratory bio fire negative. Agree with empiric antibiotics at this time. She also has enlargement of the right parotid gland with adjacent stranding and thickening of the right platysma which may also be related to an infectious/inflammatory process. She does present with wheezing on exam which has improved. Agree with empiric low-dose steroids. Continue Breo Ellipta while in the hospital and discharge. Can switch DuoNebs to prn. Can consider bronchoscopy in the future if symptoms are recurrent. Would benefit from outpatient PFTs and pulmonary follow-up. Flutter valve and IS ordered for pulmonary toilet. Thank you for allowing us participate in the care of the patient. Please call questions. Admission and Anticipated Discharge Date Admission Date: August 31, 2021 Subjective Patient much improved compared to 2 days ago. Wheezing is much less. Coughing is also improved. She denies any significant shortness of breath at rest, but still endorses shortness of breath with mobility and ambulation. Currently requiring 3 L of oxygen. Review of Systems Review of Systems: All systems reviewed & are unremarkable except as noted in Subjective Physical Exam Constitutional: WD/WN, vitals as above Eyes: PERRL, conjunctivae normal, anicteric sclerae Neck: Thyroid: normal thyroid; no thyromegaly Respiratory: normal respiratory effort, lungs clear to auscultation Cardiovascular: RRR, no murmur, no edema Gastrointestinal (Abdomen): normal bowel sounds, soft, nontender, no hepatosplenomegaly Musculoskeletal: no cyanosis or clubbing, extremities motor strength 5/5 Skin: no rashes, warm and dry Neurologic: PERRL, EOMI, accommodation nl, no face palsy, no dysarthria Results & Data Results & Data ([facility]) Vital Signs (Past 12 Hours) Vital Signs Temp Pulse Resp BP Pulse Ox 09/03/21 12:12 96 H 18 96 09/03/21 11:29 36.7 C 87 18 113/74 97 09/03/21 08:06 36.6 C 51 L 18 131/84 94 09/03/21 07:11 86 16 91 09/03/21 03:05 36.9 C 61 20 121/78 97 PG Care Time/CCT Total # of Minutes Spent Total Time Spent with Patient: Total time spent is greater than 50% in coordination of care (as documented) at patient's floor/unit and/or counseling patient: Coding Level of Care Code 42090 Subseq Hosp Care Lvl 3 Diagnoses Acute respiratory failure with hypoxia J96.[address] scan, chest R93.89 Wheezing R06.2
[2021-09-03] MEDS: VANCOMYCIN HCL 1,250 MG in SODIUM CHLORIDE 0.9% 250 ML IV SCH (13:39)
--- NOTE | 2021-09-03 13:54 | Pharmacy Report ---
Pharmacy Glycemic Short Note 2 - Date of Service September 03, 2021 - Glycemic Short BSG Results (Last 24 hours): 09/02/21 09/02/21 09/02/21 16:45 18:18 18:20 Glucose POC Glucose 240 H 306 H* 388 H* 09/02/21 09/02/21 09/03/21 18:22 21:11 00:20 Glucose POC Glucose 310 H* 259 H 123 H 09/03/21 09/03/21 09/03/21 03:27 03:28 03:47 Glucose POC Glucose 43 L* 45 L* 56 L* 09/03/21 09/03/21 09/03/21 04:12 05:58 07:51 Glucose POC Glucose 129 H 193 H 145 H 09/03/21 09/03/21 08:52 11:58 Glucose 234 H POC Glucose 173 H OUTPATIENT ANTIDIABETIC REGIMEN: * Lantus 25 units SQ HS * Novolog 15 units SQ AC * Trulicity 1.5 mg SQ every Saturday * HbA1c = 14.9% (08/25/21) ASSESSMENT: 09/03: * Patient received total 79 units of insulin; 60 units basal and 37 units bolus. * BSGs yesterday were [phone]. Fasting BSG today was 145 mg/dl. * Hyperglycemia at dinner time induced by the Prednisone dose she gets in the morning. * She had 50g of carb at 21:00 last night and BSG of 259 mg/dl which required coverage with 18 units of Novolog. This dose along with the basal Lantus dose at HS most likely resulted in patient becoming hypoglycemic overnight at around 4am. * Basal insulin, both Lantus and NPH were held this morning. Added Lantus 30 units for HS tonight which is almost the same as home dose. * Recent admission and discharge last week- at that time patient was on Lantus 30 units at HS with well controlled BSGs. * Novolog parameters loosened at lunch time to prevent over-correction and insulin stacking that could result in hypoglycemia. * Expect BSG to trend up at dinner today due to the Prednisone 20 mg dose given this AM. May possibly add NPH insulin tomorrow AM to cover for this. Background 09/02/21: * 66 yo F admitted 08/31/21 secondary to sepsis. Pharmacy was consulted at dinnertime to assist with inpatient glycemic management. * Patient has been on Prednisone 20 mg daily which is likely the cause of postprandial hyperglycemia. Remains on multiple antibiotics and has a T2DM diet ordered. * Will continue with previously ordered 30 units of Lantus BID. Novolog parameters need tightened to help with steroid-induced hyperglycemia. Also, will initiate NPH at 0.35 units/kg starting tomorrow morning with Prednisone. PLAN FOR INPATIENT GLYCEMIC CONTROL: * Basal insulin * Lantus 30 units SQ HS * NPH- held today * Bolus insulin- loosened CF/CR * NovoLog per scale ACHS or Q6hrs while NPO * Goal Range: Low 110 mg/dL - High 140 mg/dL * Correction Factor: 25 mg/dL/unit * Nutritional / Prandial insulin per carb ratio of 1 unit per 6 grams CHO consumed
--- NOTE | 2021-09-03 16:09 | ENT Consultation ---
Date of Consultation September 03, 2021 Assessment & Plan (1) Acute bacterial sinusitis: Patient is on broad spectrum IV antibiotics that will cover her Valenzuela-Sinus infections. Would ADD - 1) Daily Mucolytic Agent such as GUAIFENISEN - and Nasal SALINE SPRAY to help moisturize the Nasal Mucosa and permit better evacua Guaition of the sinus disease. Guaifenisen such as HUMABID or MUCINEX should be TWICE a day. Nasal SALINE SPRAY should be FOUR (4) to SIX (6) TIMES A DAY. However with the patient's multiple medical problems and mental status changes - IF the Sinus Disease is NOT responding to medical therapy - then might consider 3) Bilateral Endoscopic Sinus Surgery this current hospital admission to open and drain the Maxillary / Ethmoid / Frontal Sinuses. Consider Repeat Sinus CT Scan on Saturday IF patient not improving. Present on Admission?: Yes (2) Acute dehydration: Patient has had several days/weeks of hydration imbalance and that has contributed to the PAROTITIS. IF possible and may not be so, due to the Multifactoral Medical Problems, but the DRY MOUTH complicates the emptying of the DRY Parotid Glands. Present on Admission?: Yes (3) Parotitis: This is PAROTITIS - secondary to the patient's DRY MOUTH / DEHYDRATION - which Dried up the Salivary Glands and the "sludge" got infected from the same. She has very good Antibiotic Coverage now. There is NO parotis abscess fortunately. Standard Parotitis treatment is 1) Hydration - 6 - 8 glasses of water a day to promote watery salivation and "wash out" the parotid glands. This may be difficult with patient's multiple medical problems and current necessary medications which dry out the oral cavity. 2) Daily use of sialogogues such as Lemon Drops or Diabetic Hard Candy to promote Salivation to "wash out" the Parotid glands. Again this may be difficult for the patient's medical problems / condition. 3) Gentle Massaging of the Parotid Glands TID - which stimulate salivation to wash out the gland. 4) A Warm Heating Pad to the Parotid Gland Areas - for 20 minutes TWICE a DAY to INCREASE Blood Flow to the Parotid Glands and again - helps to "Wash Out" the glands. Present on Admission?: Yes (4) Tracheal anomaly: In my review of the NECK / CHEST CT SCAN... I do NOT see any Tracheal anomaly or mucosal thickening that warrants any intervention in my opinion. IF this is a real concern - rather than an incidental radiological interpretation - then perhaps a Flexible Bronchoscopy could be considered. (?) The current IV antibiotic Therapy should be effect enough. History of Present Illness Reason for Consultation: Parotitis Requesting Physician: Crystal Freeman MD Attending Physician: Crystal Freeman MD History of Present Illness Patient was RE-Admitted to [facility] on [31 AUG 2021] for Medical history si gnificant for MUltiple Medical Problems. She was Admitted to [facility] on last Saturday [25 AUG 2021] for Diabetic Keto-Acidosis (DKA) and acute bacterial sinusitis. Patient discharged Saturday [28 AUG 2021] on Doxycycline course. Patient noted painful right cheek swelling the last 2 days. She also had a PRODUCTIVE COUGH / SPUTUM symptoms. Shortness of breath and weakness without chest pain as per patient. Patient denies fluid retention. Patient felt weak leading to fall at home that then initiated the Return to the [facility]. Patient had trouble getting up. Transient headache symptoms. No syncope /LOC. No abdominal pain complaints. Patient found on the floor by her sister. Patient lying in her own feces and urine. Patient somewhat confused. Patient found to be hypoxemic by EMS. Levaquin given at the ER for sepsis. patient noted painful right cheek swelling the last 2 days. She was RE- Admitted and placed on IV antibiotics. Allergies Allergy/AdvReac Type Severity Reaction Status Date / Time egg Allergy Mild Unknown Verified 09/01/21 09:59 Penicillins Allergy Mild Unknown Verified 09/01/21 07:06 codeine Allergy Unknown Verified 09/01/21 07:06 Sulfa (Sulfonamide Allergy Unknown Verified 09/01/21 07:06 Antibiotics) Home Medications Medication Instructions Recorded Confirmed Type aspirin 81 mg capsule 81 mg PO DAILY #30 cap 03/03/21 08/31/21 Rx atorvastatin 40 mg tablet 40 mg PO DAILY #30 tab 03/03/21 08/31/21 Rx blood sugar diagnostic (OneTouch #100 ea 03/03/21 08/25/21 Rx Verio test strips) carvedilol 6.25 mg tablet 6.25 mg PO BID #180 tab 03/03/21 08/31/21 Rx cetirizine 10 mg tablet (Zyrtec) 10 mg PO DAILY PRN #30 tab 11/19/21 05/19/22 Rx lisinopril 2.5 mg tablet 2.5 mg PO DAILY #30 tab 03/03/21 08/31/21 Rx pantoprazole 40 mg tablet,delayed 40 mg PO DAILY #30 tab 03/03/21 08/31/21 Rx release pen needle, diabetic 31 gauge x #50 ea 03/03/21 08/25/21 Rx 08/28" (Easy Comfort Pen Meta) L.acidop,casei,lactis,rham-B.lact,ramon 2 cap PO DAILY 14 Days #28 cap 08/28/21 08/31/21 Rx 625 mg (10 billion cell) capsule (Advanced Probiotic) doxycycline hyclate 100 mg capsule 100 mg PO BID 5 Days #10 cap 08/28/21 08/31/21 Rx insulin aspart U-100 100 unit/mL 15 unit SUBCUT TID #15 ml 08/28/21 08/31/21 Rx (3 mL) subcutaneous pen (Novolog Flexpen U-100 Insulin aspart) magnesium chloride 64 mg 64 mg PO BID 5 Days #10 tab 08/28/21 08/31/21 Rx (magnesium chloride) tablet,delayed release (Mag 64) dulaglutide 1.5 mg/0.5 mL 1.5 mg SUBCUT WK 08/31/21 08/31/21 History subcutaneous pen injector (Trulicity) insulin glargine 100 unit/mL 25 unit SUBCUT HS 08/31/21 08/31/21 History subcutaneous solution (Lantus U-100 Insulin) ondansetron 4 mg disintegrating 4 mg PO Q8 PRN 08/31/21 08/31/21 History tablet Patient History Medical History Abnormal CT scan, chest Bipolar disorder, unspecified CAD (coronary artery disease) COPD (chronic obstructive pulmonary disease) Diabetic ketoacidosis Dyslipidemia GERD without esophagitis History of heart attack Hypertension Type 2 diabetes mellitus Wheezing Surgical History History of surgical removal of ganglion cyst Hx of cholecystectomy Hx of tonsillectomy Family History Other Breast cancer Diabetes Myocardial infarction Denies family history of Ovarian cancer Prostate cancer Colorectal cancer Social History Smoking Status: Former smoker Age Quit Using Tobacco: 61; Second Hand Exposure: No; Do You Dip or Chew Tobacco: No; Tobacco Cessation Education Requested by Patient: No Hx Alcohol Use: No Hx Substance Use: Yes Preferred Language: [place] Islander Communication Ability: Effective Visual Impairment: No Limitations Hearing Ability: Normal Pocket Stitcher Required: No Beliefs That Will Affect Care: None marital status: Single Current Living Situation: Alone current occupational status: retired How many Children do You have: 1 Other Information That Helps Us Care for You: No Feels Safe at Home: Yes Safety Concerns: Feels Safe At This Time Assistive Devices: Walker Review of Systems Review of Systems: ROS completed on admission is unchanged - (see Admission HPI) Physical Exam Physical Exam: Patient is arousable at bedside. Responds to commands. Voice is CLEAR. Constitutional: WD/WN, vitals as above + ill appearing and + morbidly obese Eyes: PERRL, conjunctivae normal, anicteric sclerae ENMT: Ears: no external ear abnormality, no EAC abnormality and no TM abnormality Nose: + dry nasal mucous membranes; no external nose abnormality, no turbinate abnormality, no nasal discharge, no epistaxis and no nasal polyps Mouth: no lip abnormality, no oropharynx abnormality and no tongue abnormality Throat: uvula midline and + tonsils absent; no posterior oropharynx abnormality and no uvular edema Neck: BOTH Parotids are slightly FIRM to palpation. NO abscess. RIGHT is more tender to patient than LEFT. Trachea MIDLINE and NORMAL. NO laryngeal tenderness. NO Cervical Adenopathy palpable in the neck which is OBESE. Respiratory: normal respiratory effort, lungs clear to auscultation + abnormal respiratory pattern; no respiratory distress, no labored breathing, no audible wheezes and no stridor Results & Data ([facility]) Vital Signs (Past 12 Hours) Vital Signs Temp Pulse Resp BP BP Pulse Ox 09/03/21 15:16 36.7 C 93 H 17 158/82 H 98 09/03/21 12:12 96 H 18 96 09/03/21 11:29 36.7 C 87 18 113/74 97 09/03/21 08:06 36.6 C 51 L 18 131/84 94 09/03/21 07:11 86 16 91 Laboratory Results WBC = 26.5 Hgb / Hct = 13.1 g/dL / 39.3% Diagnostic Findings SOFT TISSUE NECK CT SCAN 31 AUG 2021 - FINDINGS: There is extensive sinus opacification. This has significantly progressed since head CT of August 25, 2021. A small amount of fluid within the bilateral mastoid air cells is noted. Evaluation of the neck is suboptimal on this unenhanced examination. The epiglottis is normal. Tonsils are mildly enlarged. There is asymmetric enlargement of the right parotid gland with adjacent stranding. There is thickening of the right platysma. Subtle stranding extends into the lower neck and upper chest within the subcutaneous tissues. No fluid collection to suggest an abscess is identified on this unenhanced exam. There are prominent right- sided cervical lymph nodes which are probably reactive. No sialolith is identified. There is no soft tissue gas within the neck. Visualized portions of the upper chest again demonstrate tracheal wall thickening with adjacent stranding. No acute fracture or suspicious lesion is identified within the visualized skeletal structures. IMPRESSION: 1. Asymmetric enlargement of the right parotid gland with adjacent stranding and thickening of the right platysma. Stranding extends inferiorly into the neck and upper chest. This represents right parotitis. No sialolith. 2. Mildly enlarged tonsils. No abscess identified on this unenhanced exam. 3. Significant progression of sinusitis since head CT of August 25, 2021. 4. Tracheal wall thickening better depicted on chest CT of August 31, 2021. Overall constellation of findings is nonspecific but suggests an infectious or inflammatory process. An autoimmune disorder or vasculitis is within the differential. Medications Administered CURRENT IV ANTIBIOTICS: Vancomycin Cefepime Metronidazole Doxycycline.
[2021-09-03] MEDS ORDERED: SODIUM CHLORIDE 0.65% NA SOLN 45 ML (OCEAN) PRN (16:58)
--- NOTE | 2021-09-03 18:38 | Hospitalist Progress Note ---
Date of Service September 03, 2021 Assessment & Plan (1) Acute respiratory failure with hypoxia: Plan: COPD exacerbation Present on admission with SOB and weakness after found on the floor by her sister CTA chest showed No PE. Moderate circumferential tracheal wall thickening with mild adjacent infiltration. Extensive bronchial wall thickening, greater within the right lung which results in significant airway narrowing. Long segment tracheobronchial wall thickening appearance is nonspecific however differential considerations include Erica's, sarcoidosis, amyloidosis or an infectious process. Several mildly enlarged subcarinal lymph nodes which are probably reactive. Received Levaquin and IV solumedrol in the ER She was starting on IV Vanco and Meropenem Meropenem was discontinued and started on Cefepime and continue the Vanco IV Doxycycline was starting, will d/c Vanco Pulm on board Might consider bronch if no improvement in respiratory status EDU, C-ANCA, RF, Anti proteinase 3, Anti-Myeloperoxidase Continue oxygen supplement with 2 Litter NC Continue Breo inhaler Would benefit from outpatient PFTs and pulmonary follow-up. Continue monitor closely Right Parotitis Possible due to dry mouth CT showed asymmetric enlargement of the right parotid gland with adjacent stranding and thickening of the right platysma. Stranding extends inferiorly into the neck and upper chest. Continue IV abx ENT on board that recommended hydration to promotote watery salivation and wash out the parotid glands. Gentle massage of the parotid gland TID and warm heating pad to the parotid gland Speech on board Diet advanced as tolerated Acute sinusitis CT showed Extensive sinus mucosal thickening which has progressed since prior head CT Continue guaifenesin BID and nasal saline spray QID If no improvement consider Bilateral Endoscopic Sinus Surgery to open and drain the Maxillary / Ethmoid / Frontal Sinuses. Might Consider Repeat Sinus CT Scan on Saturday if no improving. Continue monitor Elevated troponin Demand ischemia due to acute hypoxic respiratory failure Troponin on admission mildly elevated at 31 Denies any chest pain Continue aspirin, carvedilol Stable Encephalopathy Possible due to hypoxia CT head showed no acute intracranial abnormality Mental status improves Resolved Fall Weakness Continue PT/OT Fall precaution Continue PT/OT eval plan to go to rehab DM type 2 BS elevated Continue Lantus and novolog sliding scale Continue monitor BS CAD (coronary artery disease): No cardiac symptoms Continue carvedilol, lisinopril, Lipitor, aspirin Hypertension: Continue carvedilol and lisinopril Dyslipidemia: Continue atorvastatin DVT px on Lovenox Code status FULL code Admission and Anticipated Discharge Date Admission Date: August 31, 2021 Subjective Pt was seen and examined for follow up of SOB, lethargy Lying in bed with no acute distress She said that her breathing is much better She continue requiring oxygen supplement Denies any chest pain, palpitation, dizziness and SOB Review of Systems Review of Systems: All systems reviewed & are unremarkable except as noted in Subjective Physical Exam Physical Exam: General- No acute distress Head- atraumatic Eyes- PERRL, EOMI, ENT- +swelling in right submandibular area improves Neck- supple, no JVD Lungs- +diminished BS, +faint wheezing Heart- regular rhythm; no murmur Abdomen- normal bowel sounds, soft, nontender Extremities- no calf tenderness Neuro- alert, oriented x 3; PERRL, EOMI; no facial palsy; no dysarthria Skin- warm & dry Results & Data Results & Data ([facility]) Vital Signs (Past 12 Hours) Vital Signs Temp Pulse Resp BP BP Pulse Ox 09/03/21 15:16 36.7 C 93 H 17 158/82 H 98 09/03/21 12:12 96 H 18 96 09/03/21 11:29 36.7 C 87 18 113/74 97 09/03/21 08:06 36.6 C 51 L 18 131/84 94 09/03/21 07:11 86 16 91
[2021-09-03] MEDS: SODIUM CHLORIDE 0.65% NA SOLN 45 ML (OCEAN) SCH ×2 (21:19→21:30)
[2021-09-03] MEDS: INSULIN GLARGINE SOLOSTAR 100 UNITS/ML 3 ML PEN SC SCH (21:27)
[2021-09-04] MEDS: VANCOMYCIN HCL 1,250 MG in SODIUM CHLORIDE 0.9% 250 ML IV SCH ×2 (00:29→12:13)
[2021-09-04] MEDS: ALBUT/IPRATROP 3MG/0.5MG NEB 3 ML VIAL NEB SCH ×4 (00:35→19:37)
[2021-09-04] MEDS: ACETAMINOPHEN 325 MG TAB PO PRN (01:20)
[2021-09-04] MEDS: metroNIDAZOLE 500 MG/100 ML BAG IV SCH ×3 (02:10→16:47)
[2021-09-04] MEDS: DOXYCYCLINE HYCLATE 100 MG in DEXTROSE 5% 100 ML IV SCH ×2 (03:29→14:27)
[2021-09-04] MEDS: CEFEPIME 2,000 MG in SYRINGE 0 ML IV SCH ×2 (04:48→16:20)
[2021-09-04 07:18] LABS: Hematocrit (blood only) 39.3 % (37-47); Hemoglobin 12.7 g/dL (12.0-16.0); Mean Corpuscular Hemoglobin 28.9 pg (25-34); Mean Corpuscular Hgb Conc 32.3 g/dL (32-36); Mean Corpuscular Volume 89.5 fL (80-100); Mean Platelet Volume 9.7 fL (7.4-10.4); Platelet Count 441 K/uL (130-400); RDW Coefficient of Variation 13.1 % (11.5-14.5); RDW Standard Deviation 43.4 fL (36.4-46.3); Red Blood Count 4.39 M/uL (4.2-5.4); White Blood Count 20.67 K/uL (4.8-10.8)
[2021-09-04 07:33] LABS: BUN Creatinine Ratio 15.1 (10-20); Calcium 8.6 mg/dl (8.5-10.1); Creatinine Clr Calc Pharmacy 97.7 ml/min; Est GFR (African American) 113.9 ml/min; Est GFR (Non-African American) 98.2 ml/min; Potassium 3.4 mmol/L (3.5-5.1)
[2021-09-04] MEDS ORDERED: POTASSIUM CHLORIDE CRTAB 20 MEQ TABCR PO STA (08:00)
[2021-09-04] MEDS: INSULIN ASPART PER UNIT SC SCH ×4 (08:27→20:26)
[2021-09-04] MEDS: ENOXAPARIN INJ 40 MG/0.4 ML SYR SQ SCH (08:30)
[2021-09-04] MEDS: lisinopril 2.5 MG TAB PO SCH (08:31)
[2021-09-04] MEDS: PANTOprazole 40 MG TAB PO SCH (08:31)
[2021-09-04] MEDS: ASPIRIN 81 MG ECTAB PO SCH (08:31)
[2021-09-04] MEDS: FLUTICASONE/VILANTEROL 200/25MCG 14 PUFFS/INHALER INH SCH (08:31)
[2021-09-04] MEDS: carvediloL 6.25 MG TAB PO SCH ×2 (08:31→20:25)
[2021-09-04] MEDS: SODIUM CHLORIDE 0.65% NA SOLN 45 ML (OCEAN) SCH ×4 (08:31→20:27)
[2021-09-04] MEDS: predniSONE 20 MG TAB PO SCH (08:31)
--- NOTE | 2021-09-04 14:29 | Pulmonology Progress Note ---
Date of Service September 04, 2021 Assessment & Plan (1) Acute respiratory failure with hypoxia: (2) Abnormal CT scan, chest: (3) Wheezing: Plan: 66-year-old female with a past medical history of insulin-dependent diabetes mellitus, obesity, GERD and hypertension presenting to the hospital due to confusion, shortness of breath and neck pain. The diffuse tracheal wall and bronchial wall thickening are likely secondary to an acute inflammatory/infectious process. EDU screen, ANCA and rheumatoid factor pending. Respiratory bio fire negative. Recommend transitioning to oral antibiotics at this time for total course of 7 to 10 days. Recommend prednisone for total 7 days. Continue Breo Ellipta while in the hospital and discharge. Albuterol as needed. Can consider bronchoscopy in the future if symptoms recur. Would benefit from outpatient PFTs and pulmonary follow-up. Flutter valve and IS ordered for pulmonary toilet. Thank you for allowing us participate in the care of the patient. Please call questions. Pulmonary will sign off. Admission and Anticipated Discharge Date Admission Date: August 31, 2021 Subjective Patient seen and examined this afternoon. She feels that she is doing much better. She notes that her cough is improved, but it is still persistent. She is currently requiring 1 L of oxygen and saturating in the high 90s. She denies any fevers or chills. She is able to ambulate around the room. Review of Systems Review of Systems: All systems reviewed & are unremarkable except as noted in HPI & below Physical Exam Constitutional: WD/WN, vitals as above Eyes: PERRL, conjunctivae normal, anicteric sclerae Neck: Thyroid: normal thyroid; no thyromegaly Respiratory: Prolonged phase of exhalation Cardiovascular: RRR, no murmur, no edema Gastrointestinal (Abdomen): normal bowel sounds, soft, nontender, no hepatosplenomegaly Musculoskeletal: no cyanosis or clubbing, extremities motor strength 5/5 Skin: no rashes, warm and dry Neurologic: PERRL, EOMI, accommodation nl, no face palsy, no dysarthria Results & Data Results & Data ([facility]) Vital Signs (Past 12 Hours) Vital Signs Temp Pulse Pulse Resp BP BP Pulse Ox 09/04/21 13:19 102 H 18 97 09/04/21 11:30 36.9 C 90 15 140/80 92 09/04/21 11:22 36.4 C L 98 H 16 124/75 94 09/04/21 07:50 36.9 C 93 H 16 135/84 91 09/04/21 06:58 85 16 91 09/04/21 02:55 36.3 C L 81 20 113/69 90 PG Care Time/CCT Total # of Minutes Spent Total Time Spent with Patient: Total time spent is greater than 50% in coordination of care (as documented) at patient's floor/unit and/or counseling patient: Coding Level of Care Code 10124 Subseq Hosp Care Lvl 2 Diagnoses Acute respiratory failure with hypoxia J96.[address] scan, chest R93.89 Wheezing R06.2
[2021-09-04] MEDS: INSULIN GLARGINE SOLOSTAR 100 UNITS/ML 3 ML PEN SC SCH (20:25)
[2021-09-05] MEDS: VANCOMYCIN HCL 1,250 MG in SODIUM CHLORIDE 0.9% 250 ML IV SCH (00:19)
[2021-09-05] MEDS: ALBUT/IPRATROP 3MG/0.5MG NEB 3 ML VIAL NEB SCH ×2 (00:34→07:06)
[2021-09-05] MEDS: metroNIDAZOLE 500 MG/100 ML BAG IV SCH ×3 (01:19→18:19)
--- NOTE | 2021-09-05 02:06 | Hospitalist Progress Note ---
Date of Service September 04, 2021 Assessment & Plan (1) Acute respiratory failure with hypoxia: Plan: COPD exacerbation Present on admission with SOB and weakness after found on the floor by her sister CTA chest showed No PE. Moderate circumferential tracheal wall thickening with mild adjacent infiltration. Extensive bronchial wall thickening, greater within the right lung which results in significant airway narrowing. Long segment tracheobronchial wall thickening appearance is nonspecific however differential considerations include Erica's, sarcoidosis, amyloidosis or an infectious process. Several mildly enlarged subcarinal lymph nodes which are probably reactive. Received Levaquin and IV solumedrol in the ER She was starting on IV Vanco and Meropenem Meropenem was discontinued and started on Cefepime and continue the Vanco IV Doxycycline was starting, will d/c Vanco Pulm on board Might consider bronch if no improvement in respiratory status EDU, C-ANCA, RF, Anti proteinase 3, Anti-Myeloperoxidase pending Currently on 1 L NC oxygen supplement Pulm recommended to complete 7 to 10 days course of abx and prednisone for 7 days Continue Breo inhaler Would benefit from outpatient PFTs and pulmonary follow-up. Might consider 2 step prior discharge Continue monitor closely Right Parotitis Possible due to dry mouth CT showed asymmetric enlargement of the right parotid gland with adjacent stranding and thickening of the right platysma. Stranding extends inferiorly into the neck and upper chest. Continue IV abx ENT on board that recommended hydration to promotote watery salivation and wash out the parotid glands. Gentle massage of the parotid gland TID and warm heating pad to the parotid gland Speech on board Diet advanced as tolerated Acute sinusitis CT showed Extensive sinus mucosal thickening which has progressed since prior head CT Continue guaifenesin BID and nasal saline spray QID If no improvement consider Bilateral Endoscopic Sinus Surgery to open and drain the Maxillary / Ethmoid / Frontal Sinuses. Might Consider Repeat Sinus CT Scan on Saturday if no improving. Continue monitor Elevated troponin Demand ischemia due to acute hypoxic respiratory failure Troponin on admission mildly elevated at 31 Denies any chest pain Continue aspirin, carvedilol Stable Encephalopathy Possible due to hypoxia CT head showed no acute intracranial abnormality Mental status improves Resolved Fall Weakness Continue PT/OT Fall precaution Continue PT/OT eval plan to go to rehab DM type 2 BS elevated Continue Lantus and novolog sliding scale Continue monitor BS CAD (coronary artery disease): No cardiac symptoms Continue carvedilol, lisinopril, Lipitor, aspirin Hypertension: Continue carvedilol and lisinopril Dyslipidemia: Continue atorvastatin DVT px on Lovenox Code status FULL code Disposition Waiting for placement to rehab Admission and Anticipated Discharge Date Admission Date: August 31, 2021 Subjective Pt was seen and examined for follow up of SOB, lethargy Lying in bed with no acute distress She said that her breathing is much better Denies any chest pain, palpitation, dizziness and SOB Review of Systems Review of Systems: All systems reviewed & are unremarkable except as noted in Subjective Physical Exam Physical Exam: General- No acute distress Head- atraumatic Eyes- PERRL, EOMI, ENT- +swelling in right submandibular area improves Neck- supple, no JVD Lungs- +diminished BS Heart- regular rhythm; no murmur Abdomen- normal bowel sounds, soft, nontender Extremities- no calf tenderness Neuro- alert, oriented x 3; PERRL, EOMI; no facial palsy; no dysarthria Skin- warm & dry Results & Data Results & Data ([facility]) Vital Signs (Past 12 Hours) Vital Signs Temp Pulse Resp BP Pulse Ox 09/04/21 23:04 36.4 C L 75 16 124/75 90 09/04/21 19:24 36.6 C 86 18 125/82 91 09/04/21 16:11 36.2 C L 85 16 116/73 90
[2021-09-05] MEDS: DOXYCYCLINE HYCLATE 100 MG in DEXTROSE 5% 100 ML IV SCH ×2 (02:35→16:14)
[2021-09-05] MEDS: CEFEPIME 2,000 MG in SYRINGE 0 ML IV SCH ×2 (03:36→16:13)
[2021-09-05] MEDS: FLUTICASONE/VILANTEROL 200/25MCG 14 PUFFS/INHALER INH SCH (07:51)
[2021-09-05] MEDS: PANTOprazole 40 MG TAB PO SCH (07:52)
[2021-09-05] MEDS: lisinopril 2.5 MG TAB PO SCH (07:52)
[2021-09-05] MEDS: ASPIRIN 81 MG ECTAB PO SCH (07:52)
[2021-09-05] MEDS: ENOXAPARIN INJ 40 MG/0.4 ML SYR SQ SCH (07:52)
[2021-09-05] MEDS: SODIUM CHLORIDE 0.65% NA SOLN 45 ML (OCEAN) SCH ×4 (07:52→20:30)
[2021-09-05] MEDS: carvediloL 6.25 MG TAB PO SCH ×2 (07:52→20:30)
[2021-09-05] MEDS ORDERED: ALBUT/IPRATROP 3MG/0.5MG NEB 3 ML VIAL NEB PRN (08:40)
[2021-09-05] MEDS: INSULIN ASPART PER UNIT SC SCH ×4 (09:14→21:02)
[2021-09-05 09:17] LABS: Hemoglobin 13.3 g/dL (12.0-16.0); Mean Corpuscular Hemoglobin 28.9 pg (25-34); Mean Corpuscular Hgb Conc 32.4 g/dL (32-36); Mean Corpuscular Volume 88.9 fL (80-100); Mean Platelet Volume 9.2 fL (7.4-10.4); Platelet Count 467 K/uL (130-400); RDW Coefficient of Variation 13.5 % (11.5-14.5); RDW Standard Deviation 43.9 fL (36.4-46.3); Red Blood Count 4.61 M/uL (4.2-5.4)
[2021-09-05 09:40] LABS: BUN Creatinine Ratio 14.6 (10-20); Calcium 8.7 mg/dl (8.5-10.1); Creatinine Clr Calc Pharmacy 109.1 ml/min; Est GFR (African American) 117.6 ml/min; Est GFR (Non-African American) 101.5 ml/min; Potassium 3.4 mmol/L (3.5-5.1)
--- NOTE | 2021-09-05 10:38 | Hospitalist Progress Note ---
Date of Service September 05, 2021 Assessment & Plan (1) Acute respiratory failure with hypoxia: Plan: COPD exacerbation Present on admission with SOB and weakness after found on the floor by her sister CTA chest showed No PE. Moderate circumferential tracheal wall thickening with mild adjacent infiltration. Extensive bronchial wall thickening, greater within the right lung which results in significant airway narrowing. Long segment tracheobronchial wall thickening appearance is nonspecific however differential considerations include Erica's, sarcoidosis, amyloidosis or an infectious process. Several mildly enlarged subcarinal lymph nodes which are probably reactive. Received Levaquin and IV solumedrol in the ER She was starting on IV Vanco and Meropenem Meropenem was discontinued and started on Cefepime and continue the Vanco IV Doxycycline was starting, will d/c Vanco Pulm on board Might consider bronch if no improvement in respiratory status EDU, C-ANCA, RF, Anti proteinase 3, Anti-Myeloperoxidase pending Currently on 1 L NC oxygen supplement Pulm recommended to complete 7 to 10 days course of abx and prednisone for 7 days Continue Breo inhaler Would benefit from outpatient PFTs and pulmonary follow-up. Consider 2 step prior discharge Kaleb transition to PO abx on discharge Continue monitor closely Right Parotitis Possible due to dry mouth CT showed asymmetric enlargement of the right parotid gland with adjacent stranding and thickening of the right platysma. Stranding extends inferiorly into the neck and upper chest. Continue IV abx ENT on board that recommended hydration to promotote watery salivation and wash out the parotid glands. Gentle massage of the parotid gland TID and warm heating pad to the parotid gland Speech on board Diet advanced as tolerated Acute sinusitis CT showed Extensive sinus mucosal thickening which has progressed since prior head CT Continue guaifenesin BID and nasal saline spray QID If no improvement consider Bilateral Endoscopic Sinus Surgery to open and drain the Maxillary / Ethmoid / Frontal Sinuses. Might Consider Repeat Sinus CT Scan on Saturday if no improving. Continue monitor Elevated troponin Demand ischemia due to acute hypoxic respiratory failure Troponin on admission mildly elevated at 31 Denies any chest pain Continue aspirin, carvedilol Stable Metabolic Encephalopathy Possible due to hypoxia CT head showed no acute intracranial abnormality Mental status improves Resolved Fall Weakness Continue PT/OT Fall precaution Continue PT/OT eval plan to go to rehab DM type 2 BS elevated Continue Lantus and novolog sliding scale Continue monitor BS CAD (coronary artery disease): No cardiac symptoms Continue carvedilol, lisinopril, Lipitor, aspirin Hypertension: Continue carvedilol and lisinopril Dyslipidemia: Continue atorvastatin DVT px on Lovenox Code status FULL code Disposition Waiting for placement to rehab Admission and Anticipated Discharge Date Admission Date: August 31, 2021 Subjective Pt was seen and examined for follow up of SOB Lying in bed with no acute distress She said that her breathing is much better She does not want to keep the oxygen on, she keeps remove it Denies any chest pain, palpitation, dizziness and SOB Review of Systems Review of Systems: All systems reviewed & are unremarkable except as noted in Subjective Physical Exam Physical Exam: General- No acute distress Head- atraumatic Eyes- PERRL, EOMI, ENT- +swelling in right submandibular area improves Neck- supple, no JVD Lungs- +diminished BS Heart- regular rhythm; no murmur Abdomen- normal bowel sounds, soft, nontender Extremities- no calf tenderness Neuro- alert, oriented x 3; PERRL, EOMI; no facial palsy; no dysarthria Skin- warm & dry Results & Data Results & Data ([facility]) Vital Signs (Past 12 Hours) Vital Signs Temp Pulse Pulse Pulse Resp BP Pulse Ox 09/05/21 07:52 37.6 C H 101 H 19 140/85 90 09/05/21 07:07 98 H 18 93 09/05/21 03:43 36.4 C L 86 18 128/83 91 09/05/21 03:26 74 09/04/21 23:04 36.4 C L 75 16 124/75 90
--- NOTE | 2021-09-05 14:29 | Pharmacy Report ---
Pharmacy Glycemic Short Note 2 - Date of Service September 05, 2021 - Glycemic Short BSG Results (Last 24 hours): 09/04/21 09/04/21 09/05/21 16:32 20:17 07:43 Glucose POC Glucose 135 H 205 H 112 H 09/05/21 09/05/21 08:29 11:57 Glucose 159 H POC Glucose 241 H OUTPATIENT ANTIDIABETIC REGIMEN: * Lantus 25 units SQ HS * Novolog 15 units SQ AC * Trulicity 1.5 mg SQ every Saturday * HbA1c = 14.9% (08/25/21) ASSESSMENT: 09/05: * Patient's blood sugars well controlled yesterday on Lantus and NovoLog, no NPH, remains on Prednisone 20mg QAM, except for one high sugar prior to bedtime. * Today blood sugar nicole prior to lunch. * Tighten CF/CR at this time, could consider NPH with prednisone, but sugars are not consistently high all day. 09/03: * Patient received total 79 units of insulin; 60 units basal and 37 units bolus. * BSGs yesterday were [phone]. Fasting BSG today was 145 mg/dl. * Hyperglycemia at dinner time induced by the Prednisone dose she gets in the morning. * She had 50g of carb at 21:00 last night and BSG of 259 mg/dl which required coverage with 18 units of Novolog. This dose along with the basal Lantus dose at HS most likely resulted in patient becoming hypoglycemic overnight at around 4am. * Basal insulin, both Lantus and NPH were held this morning. Added Lantus 30 units for HS tonight which is almost the same as home dose. * Recent admission and discharge last week- at that time patient was on Lantus 30 units at HS with well controlled BSGs. * Novolog parameters loosened at lunch time to prevent over-correction and insulin stacking that could result in hypoglycemia. * Expect BSG to trend up at dinner today due to the Prednisone 20 mg dose given this AM. May possibly add NPH insulin tomorrow AM to cover for this. Background 09/02/21: * 66 yo F admitted 08/31/21 secondary to sepsis. Pharmacy was consulted at dinnertime to assist with inpatient glycemic management. * Patient has been on Prednisone 20 mg daily which is likely the cause of postprandial hyperglycemia. Remains on multiple antibiotics and has a T2DM diet ordered. * Will continue with previously ordered 30 units of Lantus BID. NovoLog parameters need tightened to help with steroid-induced hyperglycemia. Also, will initiate NPH at 0.35 units/kg starting tomorrow morning with Prednisone. PLAN FOR INPATIENT GLYCEMIC CONTROL: * Basal insulin * Lantus 30 units SQ HS * Bolus insulin- tighten CF/CR * NovoLog per scale ACHS or Q6hrs while NPO * Goal Range: Low 110 mg/dL - High 140 mg/dL * Correction Factor: 20 mg/dL/unit * Nutritional / Prandial insulin per carb ratio of 1 unit per 5 grams CHO consumed
[2021-09-05] MEDS: INSULIN GLARGINE SOLOSTAR 100 UNITS/ML 3 ML PEN SC SCH (21:04)
--- NOTE | 2021-09-05 21:44 | Ears,Nose,Throat Progress Note ---
Date of Service September 05, 2021 Assessment & Plan (1) Parotitis: Plan: Stable / Improving on IV Antibiotics. Adequate Hydration. Continue with same. Present on Admission?: Yes (2) Acute bacterial sinusitis: Plan: Stable / Improving on IV Antibiotics. Adequate Hydration. Continue with same. Present on Admission?: Yes Admission and Anticipated Discharge Date Admission Date: August 31, 2021 Subjective Patient resting in bed in room. NO stridor. Physical Exam ENMT: Oral Cavity appears much better - mucosa CLEAN - NOT parched nor Dry. Nasal Cavity Clean & Patent - NO mucopus seen. Neck: Parotid Glands stable. NO fluctuance. NOT tender to patient. Results & Data ([facility]) Vital Signs (Past 12 Hours) Vital Signs Temp Pulse Pulse Pulse Resp BP Pulse Ox 09/05/21 20:16 36.8 C 92 H 16 140/81 92 09/05/21 15:51 36.6 C 82 19 132/75 92 09/05/21 12:35 36.5 C 87 19 113/62 92 09/05/21 11:24 74
[2021-09-06] MEDS: metroNIDAZOLE 500 MG/100 ML BAG IV SCH ×4 (00:01→23:45)
[2021-09-06] MEDS: DOXYCYCLINE HYCLATE 100 MG in DEXTROSE 5% 100 ML IV SCH ×2 (04:07→15:32)
[2021-09-06] MEDS: CEFEPIME 2,000 MG in SYRINGE 0 ML IV SCH ×2 (04:09→15:32)
[2021-09-06] MEDS: ASPIRIN 81 MG ECTAB PO SCH (07:58)
[2021-09-06] MEDS: carvediloL 6.25 MG TAB PO SCH ×2 (07:58→20:23)
[2021-09-06] MEDS: lisinopril 2.5 MG TAB PO SCH (07:58)
[2021-09-06] MEDS: ENOXAPARIN INJ 40 MG/0.4 ML SYR SQ SCH (07:58)
[2021-09-06] MEDS: FLUTICASONE/VILANTEROL 200/25MCG 14 PUFFS/INHALER INH SCH (07:58)
[2021-09-06] MEDS: PANTOprazole 40 MG TAB PO SCH (07:59)
[2021-09-06] MEDS: SODIUM CHLORIDE 0.65% NA SOLN 45 ML (OCEAN) SCH ×4 (07:59→20:24)
[2021-09-06] MEDS: predniSONE 20 MG TAB PO SCH (08:54)
[2021-09-06] MEDS: INSULIN ASPART PER UNIT SC SCH ×4 (09:03→20:23)
--- NOTE | 2021-09-06 09:13 | Pharmacy Report ---
Pharmacy Glycemic Short Note 2 - Date of Service September 06, 2021 - Glycemic Short BSG Results (Last 24 hours): 09/05/21 09/05/21 09/05/21 08:29 11:57 16:39 Glucose 159 H POC Glucose 241 H 134 H 09/05/21 09/06/21 21:00 07:29 Glucose POC Glucose 129 H 119 H OUTPATIENT ANTIDIABETIC REGIMEN: * Lantus 25 units SQ HS * Novolog 15 units SQ AC * Trulicity 1.5 mg SQ every Saturday * HbA1c = 14.9% (08/25/21) ASSESSMENT: 09/06: * Chelsea received a total of 51 units of insulin on both 09/04 and 09/05 (30 units basal + 21 units bolus). * BSGs well controlled yesterday: [phone] mg/dL. * Of note, patient did not receive Prednisone yesterday as it had only been ordered for 4 doses (09/01-09/04). * Fasting BSG of 119 mg/dL this AM - well controlled * No changes to insulin regimen today * Spoke with provider about pulmonology recommending 7 days total of prednisone. Provider okayed 3 more doses of prednisone 20 mg qAM starting this morning. 09/05: * Patient's blood sugars well controlled yesterday on Lantus and NovoLog, no NPH, remains on Prednisone 20mg QAM, except for one high sugar prior to bedtime. * Today blood sugar nicole prior to lunch. * Tighten CF/CR at this time, could consider NPH with prednisone, but sugars are not consistently high all day. PLAN FOR INPATIENT GLYCEMIC CONTROL: * Basal insulin * Lantus 30 units SQ HS * Bolus insulin * NovoLog per scale ACHS or Q6hrs while NPO * Goal Range: Low 110 mg/dL - High 140 mg/dL * Correction Factor: 20 mg/dL/unit * Nutritional / Prandial insulin per carb ratio of 1 unit per 5 grams CHO consumed
--- NOTE | 2021-09-06 13:22 | Hospitalist Progress Note ---
Date of Service September 06, 2021 Assessment & Plan (1) COPD (chronic obstructive pulmonary disease): (2) Parotitis: Plan: Acute respiratory failure with hypoxia: COPD exacerbation Present on admission with SOB and weakness after found on the floor by her s ister CTA chest showed No PE.Moderate circumferential tracheal wall thickening with mild adjacent infiltration. Extensive bronchial wall thickening, greater within the right lung which results in significant airway narrowing. Long segment tracheobronchial wall thickening appearance is nonspecific however differential considerations include Erica's, sarcoidosis, amyloidosis or an infectious process. Several mildly enlarged subcarinal lymph nodes which are probably reactive. Received Levaquin and IV solumedrol in the ER She was started on IV Vanco and Meropenem Meropenem was discontinued and started on Cefepime and continued the Vanco IV Doxycycline was started, Vanco stopped Pulmonary medicine consulted Might consider bronch if no improvement in respiratory status EDU, C-ANCA, RF, Anti proteinase 3, Anti-Myeloperoxidase pending Currently on 1 L NC oxygen supplement Pulm recommended to complete 7 to 10 days course of abx and prednisone for 7 days Continue Breo Ellipta inhaler also on DC, and albuterol prn Would benefit from outpatient PFTs and pulmonary follow-up. Consider 2 step prior discharge Kaleb transition to PO abx on discharge Continue monitor closely 09/06 -patient is currently breathing comfortably on room air Right Parotitis Possible due to dry mouth CT showed asymmetric enlargement of the right parotid gland with adjacent stranding and thickening of the right platysma. Stranding extends inferiorly into the neck and upper chest. Continue IV abx ENT on board that recommended hydration to promotote watery salivation and wash out the parotid glands. Gentle massage of the parotid gland TID and warm heating pad to the parotid gland Speech on board Diet advanced as tolerated 09/06 -patient reports the swelling is much improved, size of her parotid gland is now normal. Also denies any tenderness to palpation, which is also much improved from admission Acute sinusitis CT showed Extensive sinus mucosal thickening which has progressed since prior head CT Continue guaifenesin BID and nasal saline spray QID If no improvement considerBilateral Endoscopic Sinus Surgery to open and drain the Maxillary / Ethmoid / Frontal Sinuses. Might Consider Repeat Sinus CT Scan on Saturday if no improving. Continue monitor Elevated troponin Demand ischemia due to acute hypoxic respiratory failure Troponin on admission mildly elevated at 31 Denies any chest pain Continue aspirin, carvedilol Stable Metabolic Encephalopathy - Resolved Possible due to hypoxia CT head showed no acute intracranial abnormality Mental status improved Resolved Fall Weakness Continue PT/OT Fall precaution Continue PT/OT eval plan to go to rehab, (however denied [facility] by insurance), likely DC to SNF DM type 2 BS elevated Continue Lantus and novolog sliding scale Continue monitor BS CAD (coronary artery disease): No cardiac symptoms Continue carvedilol, lisinopril, Lipitor, aspirin Hypertension: Continue carvedilol and lisinopril Dyslipidemia: Continue atorvastatin DVT px on Lovenox Code status FULL code Admission and Anticipated Discharge Date Admission Date: August 31, 2021 Subjective Pt seen in follow up of encephalopathy, hypoxia, parotitis, acute sinusitis Lying in bed in no acute distress Reports that she is feeling much better, denies any pain of her right parotid gland. She also reports that swelling is much improved and the size is actually normal for her. Denies any fevers, chills, chest pain, shortness of breath She is eating and swallowing without any difficulty. Reports that she is drinking plenty of water. Review of Systems Review of Systems: All systems reviewed & are unremarkable except as noted in Subjective Physical Exam Physical Exam: General- No acute distress Head- atraumatic Eyes- PERRL, EOMI, ENT- +swelling in right submandibular area much improved (also nontender to palpation) Neck- supple, no JVD Lungs- +diminished BS Heart- regular rhythm; no murmur Abdomen- normal bowel sounds, soft, nontender Extremities- no calf tenderness Neuro- alert, oriented x 3; PERRL, EOMI; no facial palsy; no dysarthria, moves extremities Skin- warm & dry Results & Data Results & Data ([facility]) Vital Signs (Past 12 Hours) Vital Signs Temp Pulse Pulse Pulse Resp BP BP 09/06/21 11:17 36.8 C 77 22 114/76 09/06/21 07:25 36.3 C L 89 15 128/82 09/06/21 06:40 36.5 C 84 18 134/77 09/06/21 06:11 83 09/06/21 03:26 36.4 C L 81 16 132/75 Pulse Ox 09/06/21 11:17 89 L 09/06/21 07:25 91 09/06/21 06:40 92 09/06/21 06:11 09/06/21 03:26 93 Laboratory Results 09/06/21 09/06/21 09/05/21 Range/Units 12:01 07:29 21:00 POC Glucose 215 H 119 H 129 H (70-99) mg/dl 09/05/21 Range/Units 16:39 POC Glucose 134 H (70-99) mg/dl Medications Administered Current Inpatient Medications Acetaminophen (Acetaminophen 325 Mg Tab) 650 mg PO Q4H PRN PRN Reason: Pain or Fever Stop: 10/01/21 02:02 Last Admin: 09/04/21 01:20 Dose: 650 mg Documented by: Albuterol (Albut/Ipratrop 3mg/0.5mg Neb 3 Ml Vial) 3 ml NEB Q6R PRN; Protocol PRN Reason: Shortness Of Breath Or Wheezing Stop: 10/01/21 15:14 Aspirin (Aspirin 81 Mg Ectab) 81 mg PO DAILY ELIDA Stop: 10/01/21 08:59 Last Admin: 09/06/21 07:58 Dose: 81 mg Documented by: Carvedilol (Carvedilol 6.25 Mg Tab) 6.25 mg PO BID ELIDA Stop: 09/30/21 23:44 Last Admin: 09/06/21 07:58 Dose: 6.25 mg Documented by: Dextrose (Dextrose 50% 50 Ml Syringe) 25 - 50 ml IV UD PRN; Protocol PRN Reason: Hypoglycemia Protocol Stop: 09/30/21 23:37 Enoxaparin Sodium (Enoxaparin Inj 40 Mg/0.4 Ml Syr) 40 mg SQ QAM ELIDA Stop: 10/01/21 08:59 Last Admin: 09/06/21 07:58 Dose: 40 mg Documented by: Fluticasone/Vilanterol (Fluticasone/Vilanterol 200/25mcg 14 Puffs/Inhaler) 1 puffs INH DAILY ELIDA Stop: 10/01/21 15:29 Last Admin: 09/06/21 07:58 Dose: 1 puffs Documented by: Glucagon (Glucagon For Inj 1 Mg Vial) 1 mg SQ UD PRN; Protocol PRN Reason: Hypoglycemia Protocol Stop: 09/30/21 23:37 Glucose (Glucose 10 Tabs/Tube) 4 - 8 tabs PO UD PRN; Protocol PRN Reason: Hypoglycemia Protocol Stop: 09/30/21 23:37 Glucose (Glucose 40% Gel 15 Gm Tube) 15 - 30 gm PO UD PRN; Protocol PRN Reason: Hypoglycemia Protocol Stop: 09/30/21 23:37 Guaifenesin (Guaifenesin 200 Mg Tab) 200 mg PO Q8H PRN PRN Reason: cough Stop: 10/03/21 09:47 Cefepime HCl 2,000 mg/ Syringe 20 mls @ 5 mls/min IV Q12H ELIDA; Protocol Stop: 09/11/21 15:59 Last Admin: 09/06/21 04:09 Dose: 5 mls/min Documented by: Metronidazole (Flagyl) 500 mg in 100 mls @ 100 mls/hr IV Q8H ELIDA Stop: 09/11/21 16:29 Last Infusion: 09/06/21 08:57 Dose: Infused Documented by: Doxycycline Hyclate 100 mg/ (Dextrose) 110 mls @ 50 mls/hr IV Q12H ELIDA; Protocol Stop: 09/08/21 15:29 Last Infusion: 09/06/21 06:42 Dose: Infused Documented by: Insulin Aspart (Insulin Aspart Per Unit) 0 units SC ACHS [facility]; Protocol Stop: 09/30/21 23:39 Last Admin: 09/06/21 12:37 Dose: 12 units Documented by: Insulin Glargine (Insulin Glargine Solostar 100 Units/Ml 3 Ml Pen) 30 units SC HS [facility] Stop: 10/03/21 20:59 Last Admin: 09/05/21 21:04 Dose: 30 units Documented by: Lisinopril (Lisinopril 2.5 Mg Tab) 2.5 mg PO DAILY ELIDA Stop: 10/01/21 08:59 Last Admin: 09/06/21 07:58 Dose: 2.5 mg Documented by: Miscellaneous (Carbohydrates For Hypoglycemia ) 15 - 30 gm PO UD PRN PRN Reason: Hypoglycemia Protocol Stop: 09/30/21 23:37 Last Admin: 09/03/21 03:50 Dose: 15 gm Documented by: Miscellaneous Information (Pharmacy Glycemic Mgmt Consult) 1 ea N/A UD PRN PRN Reason: Consult Stop: 10/02/21 20:04 Pantoprazole Sodium (Pantoprazole 40 Mg Tab) 40 mg PO DAILY [facility] Stop: 10/01/21 08:59 Last Admin: 09/06/21 07:59 Dose: 40 mg Documented by: Prednisone (Prednisone 20 Mg Tab) 20 mg PO DAILY [facility] Stop: 09/08/21 09:01 Last Admin: 09/06/21 08:54 Dose: 20 mg Documented by: Sodium Chloride (Sodium Chloride 0.65% Na Soln 45 Ml ([place]edar)) 1 sprays NA QID [facility] Stop: 10/03/21 18:59 Last Admin: 09/06/21 12:39 Dose: 1 sprays Documented by:
[2021-09-06] MEDS ORDERED: COUGH DROP (SUGAR FREE) LOZ 24 LOZ/1 BOX BUCCAL ONE (16:00)
[2021-09-06] MEDS: INSULIN GLARGINE SOLOSTAR 100 UNITS/ML 3 ML PEN SC SCH (20:24)
[2021-09-07] MEDS: CEFEPIME 2,000 MG in SYRINGE 0 ML IV SCH ×3 (03:23→17:06)
[2021-09-07] MEDS: ACETAMINOPHEN 325 MG TAB PO PRN (03:23)
[2021-09-07] MEDS: DOXYCYCLINE HYCLATE 100 MG in DEXTROSE 5% 100 ML IV SCH ×3 (03:23→17:07)
[2021-09-07] MEDS: metroNIDAZOLE 500 MG/100 ML BAG IV SCH ×3 (07:47→23:34)
[2021-09-07] MEDS: ENOXAPARIN INJ 40 MG/0.4 ML SYR SQ SCH (07:48)
[2021-09-07] MEDS: lisinopril 2.5 MG TAB PO SCH (07:48)
[2021-09-07] MEDS: carvediloL 6.25 MG TAB PO SCH ×2 (07:48→20:20)
[2021-09-07] MEDS: ASPIRIN 81 MG ECTAB PO SCH (07:48)
[2021-09-07] MEDS: FLUTICASONE/VILANTEROL 200/25MCG 14 PUFFS/INHALER INH SCH (07:48)
[2021-09-07] MEDS: predniSONE 20 MG TAB PO SCH (07:49)
[2021-09-07] MEDS: PANTOprazole 40 MG TAB PO SCH (07:49)
[2021-09-07] MEDS: SODIUM CHLORIDE 0.65% NA SOLN 45 ML (OCEAN) SCH ×4 (07:49→20:22)
[2021-09-07] MEDS: INSULIN ASPART PER UNIT SC SCH ×3 (08:27→17:11)
[2021-09-07 12:55] LABS: Hematocrit (blood only) 39.3 % (37-47); Hemoglobin 12.6 g/dL (12.0-16.0); Mean Corpuscular Hemoglobin 28.6 pg (25-34); Mean Corpuscular Hgb Conc 32.1 g/dL (32-36); Mean Corpuscular Volume 89.1 fL (80-100); Platelet Count 499 K/uL (130-400); RDW Coefficient of Variation 13.6 % (11.5-14.5); RDW Standard Deviation 44.5 fL (36.4-46.3); Red Blood Count 4.41 M/uL (4.2-5.4); White Blood Count 17.74 K/uL (4.8-10.8)
[2021-09-07 13:14] LABS: BUN Creatinine Ratio 20.4 (10-20); Calcium 8.6 mg/dl (8.5-10.1); Creatinine Clr Calc Pharmacy 95.7 ml/min; Est GFR (African American) 113.2 ml/min; Est GFR (Non-African American) 97.6 ml/min; Magnesium 1.8 mg/dl (1.7-2.4); Phosphorus 2.9 mg/dl (2.5-4.9)
--- NOTE | 2021-09-07 13:54 | Hospitalist Progress Note ---
Date of Service September 07, 2021 Assessment & Plan (1) COPD (chronic obstructive pulmonary disease): (2) Parotitis: Plan: Acute respiratory failure with hypoxia: COPD exacerbation Present on admission with SOB and weakness after found on the floor by her s ister CTA chest showed No PE.Moderate circumferential tracheal wall thickening with mild adjacent infiltration. Extensive bronchial wall thickening, greater within the right lung which results in significant airway narrowing. Long segment tracheobronchial wall thickening appearance is nonspecific however differential considerations include Erica's, sarcoidosis, amyloidosis or an infectious process. Several mildly enlarged subcarinal lymph nodes which are probably reactive. Received Levaquin and IV solumedrol in the ER She was started on IV Vanco and Meropenem Meropenem was discontinued and started on Cefepime and continued the Vanco IV Doxycycline was started, Vanco stopped Pulmonary medicine consulted Might consider bronch if no improvement in respiratory status EDU, C-ANCA, RF, Anti proteinase 3, Anti-Myeloperoxidase pending Currently on 1 L NC oxygen supplement Pulm recommended to complete 7 to 10 days course of abx and prednisone for 7 days Continue Breo Ellipta inhaler also on DC, and albuterol prn Would benefit from outpatient PFTs and pulmonary follow-up. Consider 2 step prior discharge Will transition to PO abx on discharge Continue monitor closely -patient is currently breathing comfortably on room air Right Parotitis Possible due to dry mouth CT showed asymmetric enlargement of the right parotid gland with adjacent stranding and thickening of the right platysma. Stranding extends inferiorly into the neck and upper chest. Continue IV abx ENT on board that recommended hydration to promotote watery salivation and wash out the parotid glands. Gentle massage of the parotid gland TID and warm heating pad to the parotid gland Speech on board Diet advanced as tolerated 09/06 -patient reports the swelling is much improved, size of her parotid gland is now normal. Also denies any tenderness to palpation, which is also much improved from admission Acute sinusitis CT showed Extensive sinus mucosal thickening which has progressed since prior head CT Continue guaifenesin BID and nasal saline spray QID If no improvement considerBilateral Endoscopic Sinus Surgery to open and drain the Maxillary / Ethmoid / Frontal Sinuses. Might Consider Repeat Sinus CT Scan on Saturday if no improving. Continue monitor Elevated troponin Demand ischemia due to acute hypoxic respiratory failure Troponin on admission mildly elevated at 31 Denies any chest pain Continue aspirin, carvedilol Stable Metabolic Encephalopathy - Resolved Possible due to hypoxia CT head showed no acute intracranial abnormality Mental status improved Resolved Fall Weakness Continue PT/OT Fall precaution Continue PT/OT eval plan to go to rehab, (however denied [facility] insurance), likely DC to SNF DM type 2 BS elevated Continue Lantus and novolog sliding scale Continue monitor BS CAD (coronary artery disease): No cardiac symptoms Continue carvedilol, lisinopril, Lipitor, aspirin Hypertension: Continue carvedilol and lisinopril Dyslipidemia: Continue atorvastatin DVT px on Lovenox Code status FULL code Admission and Anticipated Discharge Date Admission Date: August 31, 2021 Subjective Pt seen in follow up of encephalopathy, hypoxia, parotitis, acute sinusitis Lying in bed in no acute distress Reports that she is feeling much better, says that she was "miserable" before. Denies any pain of her right parotid gland. She also reports that swelling is much improved/resolved. Denies any fevers, chills, chest pain, shortness of breath She is eating and swallowing without any difficulty. Reports that she is drinking plenty of water. Review of Systems Review of Systems: All systems reviewed & are unremarkable except as noted in Subjective Physical Exam Physical Exam: General- No acute distress Head- atraumatic Eyes- PERRL, EOMI, ENT- +swelling in right submandibular area much improved (also nontender to palpation) Neck- supple, no JVD Lungs- +diminished BS, + mild rhonchi, no wheezing Heart- regular rhythm; no murmur Abdomen- normal bowel sounds, soft, nontender Extremities- no calf tenderness Neuro- alert, oriented x 3; PERRL, EOMI; no facial palsy; no dysarthria, moves extremities Skin- warm & dry Results & Data Results & Data ([facility]) Vital Signs (Past 12 Hours) Vital Signs Temp Pulse Pulse Pulse Resp BP Pulse Ox 09/07/21 11:45 36.5 C 77 16 105/67 92 09/07/21 08:04 36.4 C L 75 18 117/77 92 09/07/21 06:20 64 09/07/21 04:00 36.8 C 87 18 129/74 93 Laboratory Results 09/07/21 09/07/21 09/07/21 Range/Units 12:33 12:33 11:31 WBC 17.74 H (4.8-10.8) K/uL RBC 4.41 (4.2-5.4) M/uL Hgb 12.6 (12.0-16.0) g/dL Hct 39.3 (37-47) % MCV 89.1 (80-100) fL MCH 28.6 (25-34) pg MCHC 32.1 (32-36) g/dL RDW Std Deviation 44.5 (36.4-46.3) fL RDW Coeff of Sally 13.6 (11.5-14.5) % Plt Count 499 H (130-400) K/uL MPV 9.0 (7.4-10.4) fL Sodium 136 (136-145) mmol/L Potassium 4.0 (3.5-5.1) mmol/L Chloride 99 (98-107) mmol/L Carbon Dioxide 31 (21-32) mmol/L Anion Gap 6 (3-11) BUN 11 (6-23) mg/dl Creatinine 0.54 L (0.6-1.2) mg/dl Est Cr Clr Drug Dosing 95.7 ml/min Est GFR ( Amer) 113.2 ml/min Est GFR (Non-Af Amer) 97.6 ml/min BUN/Creatinine Ratio 20.4 H (10-20) Glucose 218 H (70-99(Fasting)) mg/dl POC Glucose 183 H (70-99) mg/dl Calcium 8.6 (8.5-10.1) mg/dl Phosphorus 2.9 (2.5-4.9) mg/dl Magnesium 1.8 (1.7-2.4) mg/dl 09/07/21 09/06/21 09/06/21 Range/Units 07:33 20:10 16:39 WBC (4.8-10.8) K/uL RBC (4.2-5.4) M/uL Hgb (12.0-16.0) g/dL Hct (37-47) % MCV (80-100) fL MCH (25-34) pg MCHC (32-36) g/dL RDW Std Deviation (36.4-46.3) fL RDW Coeff of Sally (11.5-14.5) % Plt Count (130-400) K/uL MPV (7.4-10.4) fL Sodium (136-145) mmol/L Potassium (3.5-5.1) mmol/L Chloride (98-107) mmol/L Carbon Dioxide (21-32) mmol/L Anion Gap (3-11) BUN (6-23) mg/dl Creatinine (0.6-1.2) mg/dl Est Cr Clr Drug Dosing ml/min Est GFR ( Amer) ml/min Est GFR (Non-Af Amer) ml/min BUN/Creatinine Ratio (10-20) Glucose (70-99(Fasting)) mg/dl POC Glucose 76 223 H 243 H (70-99) mg/dl Calcium (8.5-10.1) mg/dl Phosphorus (2.5-4.9) mg/dl Magnesium (1.7-2.4) mg/dl Medications Administered Current Inpatient Medications Acetaminophen (Acetaminophen 325 Mg Tab) 650 mg PO Q4H PRN PRN Reason: Pain or Fever Stop: 10/01/21 02:02 Last Admin: 09/07/21 03:23 Dose: 650 mg Documented by: Albuterol (Albut/Ipratrop 3mg/0.5mg Neb 3 Ml Vial) 3 ml NEB Q6R PRN; Protocol PRN Reason: Shortness Of Breath Or Wheezing Stop: 10/01/21 15:14 Aspirin (Aspirin 81 Mg Ectab) 81 mg PO DAILY [facility] Stop: 10/01/21 08:59 Last Admin: 09/07/21 07:48 Dose: 81 mg Documented by: Carvedilol (Carvedilol 6.25 Mg Tab) 6.25 mg PO BID [facility] Stop: 09/30/21 23:44 Last Admin: 09/07/21 07:48 Dose: 6.25 mg Documented by: Dextrose (Dextrose 50% 50 Ml Syringe) 25 - 50 ml IV UD PRN; Protocol PRN Reason: Hypoglycemia Protocol Stop: 09/30/21 23:37 Enoxaparin Sodium (Enoxaparin Inj 40 Mg/0.4 Ml Syr) 40 mg SQ QAM [facility] Stop: 10/01/21 08:59 Last Admin: 09/07/21 07:48 Dose: 40 mg Documented by: Fluticasone/Vilanterol (Fluticasone/Vilanterol 200/25mcg 14 Puffs/Inhaler) 1 puffs INH DAILY [facility] Stop: 10/01/21 15:29 Last Admin: 09/07/21 07:48 Dose: 1 puffs Documented by: Glucagon (Glucagon For Inj 1 Mg Vial) 1 mg SQ UD PRN; Protocol PRN Reason: Hypoglycemia Protocol Stop: 09/30/21 23:37 Glucose (Glucose 10 Tabs/Tube) 4 - 8 tabs PO UD PRN; Protocol PRN Reason: Hypoglycemia Protocol Stop: 09/30/21 23:37 Glucose (Glucose 40% Gel 15 Gm Tube) 15 - 30 gm PO UD PRN; Protocol PRN Reason: Hypoglycemia Protocol Stop: 09/30/21 23:37 Guaifenesin (Guaifenesin 200 Mg Tab) 200 mg PO Q8H PRN PRN Reason: cough Stop: 10/03/21 09:47 Guaifenesin (Guaifenesin 600 Mg Tabcr) 600 mg PO Q12 [facility] Stop: 10/07/21 20:59 Cefepime HCl 2,000 mg/ Syringe 20 mls @ 5 mls/min IV Q12H [facility]; Protocol Stop: 09/11/21 15:59 Last Admin: 09/07/21 03:23 Dose: 5 mls/min Documented by: Metronidazole (Flagyl) 500 mg in 100 mls @ 100 mls/hr IV Q8H [facility] Stop: 09/11/21 16:29 Last Infusion: 09/07/21 08:47 Dose: Infused Documented by: Doxycycline Hyclate 100 mg/ (Dextrose) 110 mls @ 50 mls/hr IV Q12H [facility]; Protocol Stop: 09/08/21 15:29 Last Infusion: 09/07/21 05:35 Dose: Infused Documented by: Insulin Aspart (Insulin Aspart Per Unit) 0 units SC AC [facility]; Protocol Stop: 10/07/21 16:29 Insulin Aspart (Insulin Aspart Per Unit) 0 units SC HS [facility]; Protocol Stop: 10/07/21 20:59 Insulin Glargine (Insulin Glargine Solostar 100 Units/Ml 3 Ml Pen) 25 units SC HS [facility] Stop: 10/07/21 20:59 Lactobacillus Acidophilus (Advanced Probiotic 1250 Mg Capsule) 2 cap PO DAILY [facility] Stop: 10/07/21 13:59 Lisinopril (Lisinopril 2.5 Mg Tab) 2.5 mg PO DAILY [facility] Stop: 10/01/21 08:59 Last Admin: 09/07/21 07:48 Dose: 2.5 mg Documented by: Miscellaneous (Carbohydrates For Hypoglycemia ) 15 - 30 gm PO UD PRN PRN Reason: Hypoglycemia Protocol Stop: 09/30/21 23:37 Last Admin: 09/03/21 03:50 Dose: 15 gm Documented by: Miscellaneous Information (Pharmacy Glycemic Mgmt Consult) 1 ea N/A UD PRN PRN Reason: Consult Stop: 10/02/21 20:04 Pantoprazole Sodium (Pantoprazole 40 Mg Tab) 40 mg PO DAILY [facility] Stop: 10/01/21 08:59 Last Admin: 09/07/21 07:49 Dose: 40 mg Documented by: Prednisone (Prednisone 20 Mg Tab) 20 mg PO DAILY [facility] Stop: 09/08/21 09:01 Last Admin: 09/07/21 07:49 Dose: 20 mg Documented by: Sodium Chloride (Sodium Chloride 0.65% Na Soln 45 Ml ([place])) 1 sprays NA QID [facility] Stop: 10/03/21 18:59 Last Admin: 09/07/21 11:46 Dose: Not Given Documented by:
--- NOTE | 2021-09-07 13:54 | Pharmacy Report ---
Pharmacy Glycemic Short Note 2 - Date of Service September 07, 2021 - Glycemic Short BSG Results (Last 24 hours): 09/06/21 09/06/21 09/07/21 16:39 20:10 07:33 Glucose POC Glucose 243 H 223 H 76 09/07/21 09/07/21 11:31 12:33 Glucose 218 H POC Glucose 183 H OUTPATIENT ANTIDIABETIC REGIMEN: * Lantus 25 units SQ HS * Novolog 15 units SQ AC * Trulicity 1.5 mg SQ every Saturday * HbA1c = 14.9% (08/25/21) ASSESSMENT: 09/07: * Patient received total of 71 units of insulin yesterday, of which 30 units were basal * Fasting BSG trending down 76 mg/dL - may scale back to 25 units of basal. Could also be lower due to larger amt of correctional insulin at HS * Will scale back parameters of novolog at HS time 09/06: * Chelsea received a total of 51 units of insulin on both 09/04 and 09/05 (30 units basal + 21 units bolus). * BSGs well controlled yesterday: [phone] mg/dL. * Of note, patient did not receive Prednisone yesterday as it had only been ordered for 4 doses (09/01-09/04). * Fasting BSG of 119 mg/dL this AM - well controlled * No changes to insulin regimen today * Spoke with provider about pulmonology recommending 7 days total of prednisone. Provider okayed 3 more doses of prednisone 20 mg qAM starting this morning. 09/05: * Patient's blood sugars well controlled yesterday on Lantus and NovoLog, no NPH, remains on Prednisone 20mg QAM, except for one high sugar prior to bedtime. * Today blood sugar nicole prior to lunch. * Tighten CF/CR at this time, could consider NPH with prednisone, but sugars are not consistently high all day. PLAN FOR INPATIENT GLYCEMIC CONTROL: * Basal insulin * Lantus 25 units SQ HS * Bolus insulin * NovoLog per scale ACHS or Q6hrs while NPO * Goal Range: Low 110 mg/dL - High 140 mg/dL * Correction Factor: 20 mg/dL/unit * Nutritional / Prandial insulin per carb ratio of 1 unit per 5 grams CHO consumed
[2021-09-07] MEDS: ADVANCED PROBIOTIC 1250 MG CAPSULE PO SCH (15:25)
[2021-09-07] MEDS: guaiFENesin 600 MG TABCR PO SCH (20:20)
[2021-09-07] MEDS ORDERED: INSULIN GLARGINE SOLOSTAR 100 UNITS/ML 3 ML PEN SC SCH (21:00)
[2021-09-07] MEDS ORDERED: INSULIN ASPART PER UNIT SC SCH (21:00)
[2021-09-08] MEDS: ACETAMINOPHEN 325 MG TAB PO PRN ×2 (01:13→08:21)
[2021-09-08] MEDS: CEFEPIME 2,000 MG in SYRINGE 0 ML IV SCH (03:05)
[2021-09-08] MEDS: DOXYCYCLINE HYCLATE 100 MG in DEXTROSE 5% 100 ML IV SCH (03:05)
[2021-09-08] MEDS: PANTOprazole 40 MG TAB PO SCH (08:19)
[2021-09-08] MEDS: lisinopril 2.5 MG TAB PO SCH (08:19)
[2021-09-08] MEDS: carvediloL 6.25 MG TAB PO SCH (08:20)
[2021-09-08] MEDS: ASPIRIN 81 MG ECTAB PO SCH (08:20)
[2021-09-08] MEDS: guaiFENesin 600 MG TABCR PO SCH (08:20)
[2021-09-08] MEDS: predniSONE 20 MG TAB PO SCH (08:20)
[2021-09-08] MEDS: FLUTICASONE/VILANTEROL 200/25MCG 14 PUFFS/INHALER INH SCH (08:24)
[2021-09-08] MEDS: INSULIN ASPART PER UNIT SC SCH ×2 (08:24→12:31)
[2021-09-08] MEDS: ENOXAPARIN INJ 40 MG/0.4 ML SYR SQ SCH (08:25)
[2021-09-08] MEDS: SODIUM CHLORIDE 0.65% NA SOLN 45 ML (OCEAN) SCH ×2 (08:31→12:32)
[2021-09-08] MEDS: ADVANCED PROBIOTIC 1250 MG CAPSULE PO SCH (09:20)
[2021-09-08] MEDS: metroNIDAZOLE 500 MG/100 ML BAG IV SCH (09:20)
--- NOTE | 2021-09-08 12:18 | Hospitalist Progress Note ---
Date of Service September 08, 2021 Assessment & Plan (1) COPD (chronic obstructive pulmonary disease): (2) Parotitis: Plan: Acute respiratory failure with hypoxia: COPD exacerbation Present on admission with SOB and weakness after found on the floor by her s ister CTA chest showed No PE.Moderate circumferential tracheal wall thickening with mild adjacent infiltration. Extensive bronchial wall thickening, greater within the right lung which results in significant airway narrowing. Long segment tracheobronchial wall thickening appearance is nonspecific however differential considerations include Erica's, sarcoidosis, amyloidosis or an infectious process. Several mildly enlarged subcarinal lymph nodes which are probably reactive. Received Levaquin and IV solumedrol in the ER She was started on IV Vanco and Meropenem Meropenem was discontinued and started on Cefepime and continued the Vanco IV Doxycycline was started, Vanco stopped Pulmonary medicine consulted Might consider bronch if no improvement in respiratory status EDU, C-ANCA, RF, Anti proteinase 3, Anti-Myeloperoxidase pending Currently on 1 L [place] oxygen supplement Pulm recommended to complete 7 to 10 days course of abx and prednisone for 7 days Continue Breo Ellipta inhaler also on DC, and albuterol prn Would benefit from outpatient PFTs and pulmonary follow-up. Will transition to PO abx on discharge Continue monitor closely 09/06- -patient is currently breathing comfortably on room air Right Parotitis Possible due to dry mouth CT showed asymmetric enlargement of the right parotid gland with adjacent stranding and thickening of the right platysma. Stranding extends inferiorly into the neck and upper chest. Continue IV abx ENT on board that recommended hydration to promotote watery salivation and wash out the parotid glands. Gentle massage of the parotid gland TID and warm heating pad to the parotid gland Speech on board Diet advanced as tolerated 09/06 -patient reports the swelling is much improved, size of her parotid gland is now normal. Also denies any tenderness to palpation, which is also much improved from admission Acute sinusitis CT showed Extensive sinus mucosal thickening which has progressed since prior head CT Continue guaifenesin BID and nasal saline spray QID If no improvement considerBilateral Endoscopic Sinus Surgery to open and drain the Maxillary / Ethmoid / Frontal Sinuses. Might Consider Repeat Sinus CT Scan if no improving. Continue monitor Elevated troponin Demand ischemia due to acute hypoxic respiratory failure Troponin on admission mildly elevated at 31 Denies any chest pain Continue aspirin, carvedilol Stable Metabolic Encephalopathy - Resolved Possible due to hypoxia CT head showed no acute intracranial abnormality Mental status improved Resolved Fall Weakness Continue PT/OT Fall precaution Continue PT/OT eval plan to go to [facility]) DM type 2 BS elevated Continue Lantus and novolog sliding scale Continue monitor BS CAD (coronary artery disease): No cardiac symptoms Continue carvedilol, lisinopril, Lipitor, aspirin Hypertension: Continue carvedilol and lisinopril Dyslipidemia: Continue atorvastatin DVT px on Lovenox Code status FULL code Admission and Anticipated Discharge Date Admission Date: August 31, 2021 Subjective Pt seen in follow up of encephalopathy, hypoxia, parotitis, acute sinusitis Lying in bed in no acute distress Reports that she is feeling much better, says that she was "miserable" before. Denies any pain of her right parotid gland. She also reports that swelling is much improved/resolved. Denies any fevers, chills, chest pain, shortness of breath She is eating and swallowing without any difficulty. Reports that she is drinking plenty of water. Review of Systems Review of Systems: All systems reviewed & are unremarkable except as noted in Subjective Physical Exam Physical Exam: General- No acute distress Head- atraumatic Eyes- PERRL, EOMI, ENT- +swelling in right submandibular area much improved (also nontender to palpation) Neck- supple, no JVD Lungs- +diminished BS, + mild rhonchi, no wheezing Heart- regular rhythm; no murmur Abdomen- normal bowel sounds, soft, nontender Extremities- no calf tenderness Neuro- alert, oriented x 3; PERRL, EOMI; no facial palsy; no dysarthria, moves extremities Skin- warm & dry Results & Data Results & Data ([facility]) Vital Signs (Past 12 Hours) Vital Signs Temp Pulse Pulse Pulse Resp BP BP 09/08/21 11:30 36.4 C L 79 16 110/75 09/08/21 07:55 36.4 C L 75 20 116/74 09/08/21 07:54 71 09/08/21 03:54 36.7 C 76 18 118/79 Pulse Ox 09/08/21 11:30 93 09/08/21 07:55 90 09/08/21 07:54 09/08/21 03:54 93 Laboratory Results 0509/08/21 09/07/21 Range/Units 11:41 07:43 20:03 WBC (4.8-10.8) K/uL RBC (4.2-5.4) M/uL Hgb (12.0-16.0) g/dL Hct (37-47) % MCV (80-100) fL MCH (25-34) pg MCHC (32-36) g/dL RDW Std Deviation (36.4-46.3) fL RDW Coeff of Sally (11.5-14.5) % Plt Count (130-400) K/uL MPV (7.4-10.4) fL Sodium (136-145) mmol/L Potassium (3.5-5.1) mmol/L Chloride (98-107) mmol/L Carbon Dioxide (21-32) mmol/L Anion Gap (3-11) BUN (6-23) mg/dl Creatinine (0.6-1.2) mg/dl Est Cr Clr Drug Dosing ml/min Est GFR ( Amer) ml/min Est GFR (Non-Af Amer) ml/min BUN/Creatinine Ratio (10-20) Glucose (70-99(Fasting)) mg/dl POC Glucose 189 H 110 H 295 H (70-99) mg/dl Calcium (8.5-10.1) mg/dl Phosphorus (2.5-4.9) mg/dl Magnesium (1.7-2.4) mg/dl 09/07/21 09/07/21 09/07/21 Range/Units 16:37 12:33 12:33 WBC 17.74 H (4.8-10.8) K/uL RBC 4.41 (4.2-5.4) M/uL Hgb 12.6 (12.0-16.0) g/dL Hct 39.3 (37-47) % MCV 89.1 (80-100) fL MCH 28.6 (25-34) pg MCHC 32.1 (32-36) g/dL RDW Std Deviation 44.5 (36.4-46.3) fL RDW Coeff of Sally 13.6 (11.5-14.5) % Plt Count 499 H (130-400) K/uL MPV 9.0 (7.4-10.4) fL Sodium 136 (136-145) mmol/L Potassium 4.0 (3.5-5.1) mmol/L Chloride 99 (98-107) mmol/L Carbon Dioxide 31 (21-32) mmol/L Anion Gap 6 (3-11) BUN 11 (6-23) mg/dl Creatinine 0.54 L (0.6-1.2) mg/dl Est Cr Clr Drug Dosing 95.7 ml/min Est GFR ( Amer) 113.2 ml/min Est GFR (Non-Af Amer) 97.6 ml/min BUN/Creatinine Ratio 20.4 H (10-20) Glucose 218 H (70-99(Fasting)) mg/dl POC Glucose 211 H (70-99) mg/dl Calcium 8.6 (8.5-10.1) mg/dl Phosphorus 2.9 (2.5-4.9) mg/dl Magnesium 1.8 (1.7-2.4) mg/dl Medications Administered Current Inpatient Medications Acetaminophen (Acetaminophen 325 Mg Tab) 650 mg PO Q4H PRN PRN Reason: Pain or Fever Stop: 10/01/21 02:02 Last Admin: 09/08/21 08:21 Dose: 650 mg Documented by: Albuterol (Albut/Ipratrop 3mg/0.5mg Neb 3 Ml Vial) 3 ml NEB Q6R PRN; Protocol PRN Reason: Shortness Of Breath Or Wheezing Stop: 10/01/21 15:14 Aspirin (Aspirin 81 Mg Ectab) 81 mg PO DAILY [facility] Stop: 10/01/21 08:59 Last Admin: 09/08/21 08:20 Dose: 81 mg Documented by: Carvedilol (Carvedilol 6.25 Mg Tab) 6.25 mg PO BID [facility] Stop: 09/30/21 23:44 Last Admin: 09/08/21 08:20 Dose: 6.25 mg Documented by: Dextrose (Dextrose 50% 50 Ml Syringe) 25 - 50 ml IV UD PRN; Protocol PRN Reason: Hypoglycemia Protocol Stop: 09/30/21 23:37 Enoxaparin Sodium (Enoxaparin Inj 40 Mg/0.4 Ml Syr) 40 mg SQ QAM [facility] Stop: 10/01/21 08:59 Last Admin: 09/08/21 08:25 Dose: 40 mg Documented by: Fluticasone/Vilanterol (Fluticasone/Vilanterol 200/25mcg 14 Puffs/Inhaler) 1 puffs INH DAILY [facility] Stop: 10/01/21 15:29 Last Admin: 09/08/21 08:24 Dose: 1 puffs Documented by: Glucagon (Glucagon For Inj 1 Mg Vial) 1 mg SQ UD PRN; Protocol PRN Reason: Hypoglycemia Protocol Stop: 09/30/21 23:37 Glucose (Glucose 10 Tabs/Tube) 4 - 8 tabs PO UD PRN; Protocol PRN Reason: Hypoglycemia Protocol Stop: 09/30/21 23:37 Glucose (Glucose 40% Gel 15 Gm Tube) 15 - 30 gm PO UD PRN; Protocol PRN Reason: Hypoglycemia Protocol Stop: 09/30/21 23:37 Guaifenesin (Guaifenesin 200 Mg Tab) 200 mg PO Q8H PRN PRN Reason: cough Stop: 10/03/21 09:47 Guaifenesin (Guaifenesin 600 Mg Tabcr) 600 mg PO Q12 [facility] Stop: 10/07/21 20:59 Last Admin: 09/08/21 08:20 Dose: 600 mg Documented by: Cefepime HCl 2,000 mg/ Syringe 20 mls @ 5 mls/min IV Q12H [facility]; Protocol Stop: 09/11/21 15:59 Last Admin: 09/08/21 03:05 Dose: 5 mls/min Documented by: Metronidazole (Flagyl) 500 mg in 100 mls @ 100 mls/hr IV Q8H [facility] Stop: 09/11/21 16:29 Last Infusion: 09/08/21 10:29 Dose: Infused Documented by: Doxycycline Hyclate 100 mg/ (Dextrose) 110 mls @ 50 mls/hr IV Q12H [facility]; Protocol Stop: 09/08/21 15:29 Last Infusion: 09/08/21 05:40 Dose: Infused Documented by: Insulin Aspart (Insulin Aspart Per Unit) 0 units SC AC [facility]; Protocol Stop: 10/07/21 16:29 Last Admin: 09/08/21 08:24 Dose: 15 units Documented by: Insulin Aspart (Insulin Aspart Per Unit) 0 units SC HS [facility]; Protocol Stop: 10/07/21 20:59 Last Admin: 09/07/21 20:21 Dose: 6 units Documented by: Insulin Glargine (Insulin Glargine Solostar 100 Units/Ml 3 Ml Pen) 25 units SC HS [facility] Stop: 10/07/21 20:59 Last Admin: 09/07/21 20:22 Dose: 25 units Documented by: Lactobacillus Acidophilus (Advanced Probiotic 1250 Mg Capsule) 2 cap PO DAILY [facility] Stop: 10/07/21 13:59 Last Admin: 09/08/21 09:20 Dose: 2 cap Documented by: Lisinopril (Lisinopril 2.5 Mg Tab) 2.5 mg PO DAILY [facility] Stop: 10/01/21 08:59 Last Admin: 09/08/21 08:19 Dose: 2.5 mg Documented by: Miscellaneous (Carbohydrates For Hypoglycemia ) 15 - 30 gm PO UD PRN PRN Reason: Hypoglycemia Protocol Stop: 09/30/21 23:37 Last Admin: 09/03/21 03:50 Dose: 15 gm Documented by: Miscellaneous Information (Pharmacy Glycemic Mgmt Consult) 1 ea N/A UD PRN PRN Reason: Consult Stop: 10/02/21 20:04 Pantoprazole Sodium (Pantoprazole 40 Mg Tab) 40 mg PO DAILY [facility] Stop: 10/01/21 08:59 Last Admin: 09/08/21 08:19 Dose: 40 mg Documented by: Sodium Chloride (Sodium Chloride 0.65% Na Soln 45 Ml ([place])) 1 sprays NA QID [facility] Stop: 10/03/21 18:59 Last Admin: 09/08/21 08:31 Dose: 1 sprays Documented by:
--- NOTE | 2021-09-08 13:43 | Discharge Summary ---
Date of Service September 08, 2021 Admission HPI Per Admitting Provider History obtained from patient and records. Medical history significant for COPD, CAD status post stent, hypertension, hyperlipidemia DM 2 insulin requiring, mood disorder, past tobacco abuse. Last confinement August 25-2021 for DKA and acute bacterial sinusitis. Patient discharged on Doxycycline course. Patient noted painful right cheek swelling the last 2 days. Junky cough symptoms patient denies aspiration. Shortness of breath and weakness without chest pain as per patient. Patient denies fluid retention. Patient felt weak leading to fall at home this afternoon. Patient had trouble getting up. Transient headache symptoms. No syncope/LOC. No abdominal pain complaints. Patient found on the floor by her sister. Patient lying in her own feces and ur ine. Patient somewhat confused. Patient found to be hypoxemic by EMS. Levaquin given at the ER for sepsis. Improving mentation at the ER. Medical History as above Surgical History : BTL, cholecystectomy Family History : DM Personal/Social history : Past tobacco abuse, no EtOH intake Admission Exam Per Admitting Provider GENERAL: Slightly uncomfortable, morbidly obese, no respiratory distress SKIN: Normal color, warm HEENT: Bespectacled, [place] palpebral conjunctivae, no ptosis, dry buccal mucosa, tender infra-auricular swelling right, O2 mask in place NECK : Supple, short neck, minimal right cervical tenderness CHEST : Decreased breath sounds, occasional expiratory wheezes , no tenderness HEART : Tachycardic, no obvious murmurs ABDOMEN: Some distention, nontender EXTREMITIES : Minimal LE swelling, no LE tenderness, no other conspicuous deformities noted NEUROLOGIC : Coherent, no facial asymmetry, slightly hard of hearing, and stance not assessed Principal Diagnosis Acute respiratory failure with hypoxia Right Parotitis Acute sinusitis Abnormal CT chest scan Discharge Exam General- No acute distress Head- atraumatic Eyes- PERRL, EOMI, ENT- +swelling in right submandibular area much improved (also nontender to palpation) Neck- supple, no JVD Lungs- +diminished BS, + mild rhonchi, no wheezing Heart- regular rhythm; no murmur Abdomen- normal bowel sounds, soft, nontender Extremities- no calf tenderness Neuro- alert, oriented x 3; PERRL, EOMI; no facial palsy; no dysarthria, moves extremities Skin- warm & dry Discharge Data Allergies Allergy/AdvReac Type Severity Reaction Status Date / Time egg Allergy Mild Unknown Verified 09/01/21 09:59 Penicillins Allergy Mild Unknown Verified 09/01/21 07:06 codeine Allergy Unknown Verified 09/01/21 07:06 Sulfa (Sulfonamide Allergy Unknown Verified 09/01/21 07:06 Antibiotics) Consultations 08/31/21 20:43 ED Decision to Admit Stat 09/01/21 02:03 Consult Pulmonology Routine 09/01/21 03:38 Consult Otolaryngology (Head and Neck) Routine Ordered Studies 08/31/21 18:48 CT cervical spine wo con Stat IMPRESSION: No acute cervical spine fracture or subluxation. CT head/brain wo con Stat IMPRESSION: 1. No acute intracranial findings. No change in appearance of the brain. 2. No acute calvarial fracture. 3. Extensive sinus mucosal thickening which has progressed since prior head CT. 08/31/21 19:32 CT angio chest PE protocol Stat IMPRESSION: 1. No pulmonary emboli identified. 2. Moderate circumferential tracheal wall thickening with mild adjacent infiltration. Extensive bronchial wall thickening, greater within the right lung which results in significant airway narrowing. Long segment tracheobronchial wall thickening appearance is nonspecific however differential considerations include Erica's, sarcoidosis, amyloidosis or an infectious process. Pulmonary consultation is recommended. 3. Several mildly enlarged subcarinal lymph nodes which are probably reactive. An underlying neoplastic process is considered unlikely however a follow up chest CT in 3 months is recommended. 4. No acute traumatic findings within the chest. 08/31/21 23:28 CT soft tissue neck wo con Urgent IMPRESSION: 1. Asymmetric enlargement of the right parotid gland with adjacent stranding and thickening of the right platysma. Stranding extends inferiorly into the neck and upper chest. This represents right parotitis. No sialolith. 2. Mildly enlarged tonsils. No abscess identified on this unenhanced exam. 3. Significant progression of sinusitis since head CT of August 25, 2021. 4. Tracheal wall thickening better depicted on chest CT of August 31, 2021. Overall constellation of findings is nonspecific but suggests an infectious or inflammatory process. An autoimmune disorder or vasculitis is within the differential. Hospital Course (1) COPD (chronic obstructive pulmonary disease): (2) Parotitis: Acute respiratory failure with hypoxia: COPD exacerbation Present on admission with SOB and weakness after found on the floor by her sister CTA chest showed No PE.Moderate circumferential tracheal wall thickening with mild adjacent infiltration. Extensive bronchial wall thickening, greater within the right lung which results in significant airway narrowing. Long segment tracheobronchial wall thickening appearance is nonspecific however differential considerations include Erica's, sarcoidosis, amyloidosis or an infectious process. Several mildly enlarged subcarinal lymph nodes which are probably reactive. Received Levaquin and IV solumedrol in the ER She was started on IV Vanco and Meropenem Meropenem was discontinued and started on Cefepime and continued the Vanco IV Doxycycline was started, Vanco stopped Pulmonary medicine consulted Might consider bronch if no improvement in respiratory status EDU, C-ANCA, RF, Anti proteinase 3, Anti-Myeloperoxidase pending Currently on 1 L NC oxygen supplement Pulm recommended to complete 7 to 10 days course of abx and prednisone for 7 days Continue Breo Ellipta inhaler also on DC, and albuterol prn Would benefit from outpatient PFTs and pulmonary follow-up. Will transition to PO abx on discharge Continue monitor closely 09/06- -patient is currently breathing comfortably on room air Right Parotitis Possible due to dry mouth CT showed asymmetric enlargement of the right parotid gland with adjacent stranding and thickening of the right platysma. Stranding extends inferiorly into the neck and upper chest. Continue IV abx ENT on board that recommended hydration to promotote watery salivation and wash out the parotid glands. Gentle massage of the parotid gland TID and warm heating pad to the parotid gland Speech on board Diet advanced as tolerated 09/06 -patient reports the swelling is much improved, size of her parotid gland is now normal. Also denies any tenderness to palpation, which is also much improved from admission Acute sinusitis CT showed Extensive sinus mucosal thickening which has progressed since prior head CT Continue guaifenesin BID and nasal saline spray QID If no improvement considerBilateral Endoscopic Sinus Surgery to open and drain the Maxillary / Ethmoid / Frontal Sinuses. Might Consider Repeat Sinus CT Scan if no improving. Continue monitor Elevated troponin Demand ischemia due to acute hypoxic respiratory failure Troponin on admission mildly elevated at 31 Denies any chest pain Continue aspirin, carvedilol Stable Metabolic Encephalopathy - Resolved Possible due to hypoxia CT head showed no acute intracranial abnormality Mental status improved Resolved Fall Weakness Continue PT/OT Fall precaution Continue PT/OT eval plan to go to [facility]) DM type 2 BS elevated Continue Lantus and novolog sliding scale Continue monitor BS CAD (coronary artery disease): No cardiac symptoms Continue carvedilol, lisinopril, Lipitor, aspirin Hypertension: Continue carvedilol and lisinopril Dyslipidemia: Continue atorvastatin DVT px on Lovenox Code status FULL code Total Time Total Time Spent Total Time Spent (In Minutes): 45 Discharge Plan Discharge Items Patient Disposition: Transfer Detention Fac Reason For Visit: RESP FAILURE Discharge Diagnosis: Acute respiratory failure with hypoxia Right Parotitis Acute sinusitis Abnormal CT chest scan Activity: Per Instructions section Non-emergency contact: Primary Care Provider, Specialist and Waterproofer Call non-emergency contact if: you have any medication questions and your symptoms worsen Follow-up/Referrals: PCP,NO [Primary Care Provider] - Diet: Carb Consistent or DM2 Addtl Attending Provider Instructions: Follow-up with primary care doctor, after your discharge from [place]. It is also recommended that you follow-up with pulmonary doctor. While in the hospital, you were seen by ENT physician for your sinusitis and parotitis, if there is any worsening of your symptoms, you should be seen by ENT/material handling equipment stevedore as well. You were treated with IV antibiotics for 7 days, take doxycycline 100 mg twice a day for next 3 days to finish antibiotic course. It is also recommended that you take probiotics, to prevent any stomach upset from antibiotics. Do not take your magnesium supplement, while on doxycycline. Waterproofer also recommends that you use Breo Ellipta inhaler and albuterol as needed. Drink plenty of fluids, to keep your parotid gland healthy. Also use Mucinex and nasal spray as prescribed, to help heal your sinusitis. Pending Studies at Discharge: Yes Studies:: EDU, C-ANCA, RF, Anti proteinase 3, Anti-Myeloperoxidase pending Stand-Alone Forms: My [facility] Skilled Items Patient informed of condition?: Yes DNR: No Discharge Level of Care: Skilled Communicable Disease: No Discharge Prognosis: Stable Lines: None Urinary Catheter: No Medications and DC Order Prescriptions: New Saline Mist 0.65 % Aerosol,[place] 1 spray NA QID 10 Days Qty: 44 RF: 0 guaifenesin [Mucinex] 600 mg Tablet Extended Release 12hr 600 mg PO Q12 10 Days Qty: 20 RF: 0 Breo Ellipta 200-25 mcg/dose Blister With Device 1 ea inhalation DAILY Qty: 28 RF: 0 albuterol sulfate 90 mcg/actuation HFA aerosol inhaler 1 inh inhalation QID PRN (Reason: shortness of breath or wheezing) Qty: 6.7 RF: 0 Continued atorvastatin 40 mg tablet 40 mg PO DAILY Qty: 30 RF: 2 cetirizine [Zyrtec] 10 mg tablet 10 mg PO DAILY PRN (Reason: allergy symptoms) Qty: 30 RF: 0 (DME) pen needle, diabetic [Easy Comfort Pen [place]] 31 gauge x 5/16" needle See Rx Instructions .ROUTE Qty: 50 RF: 0 (DME) OneTouch Verio test strips Strip See Rx Instructions .ROUTE Qty: 100 RF: 0 aspirin 81 mg capsule 81 mg PO DAILY Qty: 30 RF: 2 carvedilol 6.25 mg tablet 6.25 mg PO BID Qty: 180 RF: 3 lisinopril 2.5 mg tablet 2.5 mg PO DAILY Qty: 30 RF: 2 pantoprazole 40 mg tablet,delayed release (DR/EC) 40 mg PO DAILY Qty: 30 RF: 2 Mag 64 64 mg Tablet,Delayed Release (Dr/Ec) 64 mg PO BID 5 Days Qty: 10 RF: 0 insulin aspart U-100 [Novolog Flexpen U-100 Insulin] 100 unit/mL (3 mL) insulin pen 15 unit subcut TID Qty: 15 RF: 3 Advanced Probiotic 625 mg (10 billion cell) Capsule 2 cap PO DAILY 14 Days Qty: 28 RF: 0 Trulicity 1.5 mg/0.5 mL pen injector 1.5 mg SUBCUT WK RF: 0 ondansetron 4 mg tablet,disintegrating 4 mg PO Q8 PRN (Reason: Nausea And Vomiting) RF: 0 Lantus U-100 Insulin 100 unit/mL solution 25 unit subcut HS RF: 0 doxycycline hyclate 100 mg Capsule 100 mg PO BID 3 Days Qty: 10 RF: 0 Discharge Orders: Discharge Order (Routine); Ordered 09/08/21 Ordered By: Laurent Colvin Admission Data Admit Date/Time: 08/31/21 23:34 Attending Provider: Laurent Colvin Admit Provider: Ranjan Hussein Primary Care Provider: PCP,NO Other Providers: Ranjan Hussein ; Willem Middleton ; Marty Claire ; Timothy Webb ; Mickey Lima ; [facility] ; Seth Tavares ; [facility] ; [facility]
[2021-09-09 02:52] LABS: ANCA Screen Negative (Negative); Anti Nuclear Antibody Screen POSITIVE (NEGATIVE); Myeloperoxidase Ab <1.0 AI (<1.0); Proteinase-3 AB <1.0 AI (<1.0); Rheumatoid Factor <14 IU/mL (<14)
[2021-09-11 21:25] LABS: ANA Titer > OR = 1:1280 titer
== END 2021-09-08 15:42 | disposition home or self-care (01) | DRG 871 ==
LOC: ED 18:33 → MERGE 23:34 → SUATTDRO 23:34 → 2N 23:34